=== PATIENT | male | born 1955 | race Caucasian/White ===

== ENCOUNTER 2018-08-08 08:38 | Day surgery (SDC) | payer BC, SELFPAY ==
[2018-08-08] VITALS (7 sets, daily range): BP systolic 136–158; BP diastolic 73–90; PULSE 90–99; RESP 11–18; TEMP 36.3–37.2; O2SAT 93–97
[2018-08-08] MEDS: Lactated Ringers 1,000 ML 30 ML IV ×3 (09:51→16:58)
--- NOTE | 2018-08-08 14:25 | W.PM.DSUDISC ---
Discharge Plan Disposition Patient Disposition: HOME Condition: Stable Discharge Details Reason For Visit: Bilateral Inguinal Hernia Attending Provider: David Shipley III Primary Care Provider: Brittany Hsieh V Home Meds and New Rx's Prescriptions: New oxycodone 5 mg capsule 5 mg PO Q12H PRN PRN (Reason: pain) Qty: 10 RF: 0 Continued tramadol 50 MG tablet 50 mg PO PRN RF: 0 methocarbamol [Robaxin-750] 750 MG tablet 1,500 mg PO HS RF: 0 trazodone 100 MG tablet 200 mg PO HS RF: 0 omeprazole 20 MG capsule,delayed release(DR/EC) 20 mg PO DAILY RF: 0 aspirin 81 MG tablet,chewable 81 mg PO DAILY RF: 0 omega-3 fatty acids-fish oil [Fish Oil] 1 EACH capsule 1 ea PO DAILY RF: 0 Lorazepam 1 MG tablet 1 mg PO PRN RF: 0 ibuprofen 800 mg tablet 200 mg PO BID RF: 0 Discharge Instructions Referrals: David Shipley III, DO [OSTEOPATHIC DOCTOR] - 08/14/18 10:00 am Activity:: Activity as Tolerated Remove Dressings/Wound Care:: 24 hours Shower/Bathe:: 24 hours Diet:: As Tolerated Discharge Orders Discharge Orders: Discharge Order (Routine); Ordered 08/08/18 Ordered By: David Shipley III
--- NOTE | 2018-08-08 14:37 | W.PM.OP ---
Date of service: 08/08/18 Time of Service: 14:37 Operative Note DATE OF PROCEDURE: 08/08/18 PRE-OP DIAGNOSIS: laproscopic bilateral indirect inguinal hernia repair POST-OP DIAGNOSIS: same PROCEDURE: laproscopic bilateral hernia repair with mesh SURGEON: David Shipley III ASSISTING SURGEON: Ceci Corona ANESTHESIA: GETA ESTIMATED BLOOD LOSS: 10 PATHOLOGY: none sent COMPLICATIONS: None Patient was transported to: PACU Patient's condition: stable Implants: preformed marlex laproscopic inguinal mesh with 2 tacs Indications: bilateral indirect inguinal hernias Findings: left had larger sac than the right, the left needed considerable more disection Procedure Description: pt had gen anesthesia with bilateral inguinal femoral blocks done at the ASIS abd preped and draped an ioban added time out preformed pt had a infra umbilical incision and down to fascia, two midline 5mm ports inserted under direct vision the left ant fascia was incised and the rectus seen the dissection was done manually and then the dissector devise inserted and the balloon inflated the right side was done first, all okeefe structures seen and the sac identified this was manually reduced and the lateral portion dissected out to the level of the ASIS for the tail of the mesh the left side was done in a similar fashion, this dissection was more involved and took considerable more time after both sides were successfully reduced the large preformed mesh was inserted the right sat well and one tac to the pubis was used to avoid migration the left was a little more challenging but after a similar tac to the pubis it sat well this was tested with removal of the co2 and both sides sat well and watched the peritoneium come up the ports were removed under direct vision the fascia was approximated with a figure of 8 vicryl the skin closed in a layered fashion debriefing was done spoken to after the case
[2018-08-08] MEDS: Ondansetron 4 MG/2 ML VIAL IVP (15:40)
[2018-08-08] MEDS: Normal Saline Flush 10 ML SYR IV ×2 (15:40→17:02)
[2018-08-08] MEDS: diphenhydrAMINE 50 MG/ML VIAL 12.5 MG IVP (16:59)
[2018-08-08] MEDS: Scopolamine 1 MG/3 DAYS PATCH TD (17:00)
[2018-08-08] MEDS: Dexamethasone 10 MG/ML VIAL IVP (17:04)
== END 2018-08-08 18:59 | disposition home or self-care (01) ==
PROVIDERS: PCP Family Medicine; Visit Provider Surgery
PROC: (CPT 49650; principal; 2018-08-08 10:30)
DX: K40.20 Bilateral inguinal hernia, without obstruction or gangrene, not specified as recurrent (principal); K21.9 Gastro-esophageal reflux disease without esophagitis
CPT/HCPCS: 49505; C1781; J0690; J1100; J1200; J1885; J2250; J2405; J3010

== ENCOUNTER 2018-12-05 07:58 | Outpatient (CLI) | payer BC, SELFPAY ==
--- NOTE | 2018-12-05 08:38 | DI.US_ITS ---
SYMPTOM/DIAGNOSIS: SCROTAL SWELLING AND PAIN, N50.89, N50.82, S/P INGUINAL HERNIA REPAIR SCROTAL ULTRASOUND: Routine examination was performed. The right testicle measures 4.4 by 2.6 by 3.3 cm. No evidence of a testicular mass is seen. There is normal blood flow. No evidence of torsion. There are several small epididymal head cysts present, the largest measures .8 cm. There is a small hydrocele present. There is internal debris present. The left testicle measures 3.3 by 2.2 by 3.0 cm. It is homogeneous. No evidence of an intratesticular mass is seen. There is normal blood flow. No evidence of torsion. The left epididymis has several small epididymal head cysts. There is a small hydrocele present. There is a left varicocele. No evidence of an inguinal hernia is seen sonographically. IMPRESSION: 1. No evidence of an inguinal hernia. 2. Small bilateral hydroceles. 3. Left varicocele.
== END 2018-12-05 08:18 ==
PROVIDERS: PCP Family Medicine; Visit Provider Physical Therapy Assistant
DX: N50.82 Scrotal pain (principal); N50.89 Other specified disorders of the male genital organs; N43.3 Hydrocele, unspecified; I86.1 Scrotal varices
CPT/HCPCS: 76870

== ENCOUNTER 2019-01-30 13:31 | Outpatient (REF) | payer OTHER, SELFPAY ==
[2019-01-30 19:48] LABS: Anion Gap 8.8 mmol/L (3-11); BUN 18 mg/dL (7-18); CO2 25.2 mmol/L (21.0-32.0); CREATININE 0.92 mg/dL (0.70-1.30); Calcium 9.3 mg/dL (8.5-10.1); Chloride 106 mmol/L (98-107); Glucose 85 mg/dL (70-100); Potassium 4.6 mmol/L (3.5-5.1); Sodium 140 mmol/L (136-145); Uric Acid 6.1 mg/dL (3.5-7.2)
[2019-02-01 10:05] LABS: PSA, Screening 0.6 ng/ml (0-4.5)
== END 2019-01-30 13:51 ==
LOC: NCHCN 13:31
PROVIDERS: PCP Family Medicine; Visit Provider Family Medicine
DX: Z00.00 Encounter for general adult medical examination without abnormal findings (principal); Z12.5 Encounter for screening for malignant neoplasm of prostate; M79.676 Pain in unspecified toe(s)
CPT/HCPCS: 80048; 84153; 84550

== ENCOUNTER 2020-07-07 21:33 | Outpatient (REF) | payer OTHER, SELFPAY ==
[2020-07-11 19:17] LABS: COVID-19 RT-PCR Result NEGATIVE (Negative)
== END 2020-07-07 21:53 ==
LOC: NCHCN 21:33
PROVIDERS: PCP Family Medicine; Visit Provider Family Medicine
DX: Z20.828 Contact with and (suspected) exposure to other viral communicable diseases (principal)
CPT/HCPCS: U0003

== ENCOUNTER 2021-02-10 16:03 | Outpatient (REF) | payer OTHER, SELFPAY ==
[2021-02-10 19:45] LABS: Anion Gap 11.4 mmol/L (3-11); BUN 17 mg/dL (7-18); CO2 23.6 mmol/L (21.0-32.0); CREATININE 1.1 mg/dL (0.70-1.30); Calcium 9.6 mg/dL (8.5-10.1); Chloride 105 mmol/L (98-107); Glucose 85 mg/dL (74-106); Potassium 4.3 mmol/L (3.5-5.1); Sodium 140 mmol/L (136-145)
[2021-02-11 16:44] LABS: PSA, Screening 0.8 ng/mL (0.0-4.5)
[2021-02-11 20:35] LABS: Calculated LDL 142 mg/dL (<100); Cholesterol 213 mg/dL (<200); HDL Cholesterol 36 mg/dL (40-60); Triglyceride 179 mg/dL (<150)
[2021-02-12 10:23] LABS: Lyme Ab w Rflx to Lyme Confirm Negative (Negative)
[2021-02-12 10:27] LABS: Hepatitis C Ab w Rflx HCV PCR Negative (Negative)
[2021-02-13 09:39] LABS: Anaplasma phagocytophilum Negative (Negative); B. miyamotoi PCR Negative (Negative); Babesia divergens/MO-1 Negative (Negative); Babesia duncani Negative (Negative); Babesia microti Negative (Negative); Ehrlichia chaffeensis Negative (Negative); Ehrlichia ewingii/canis Negative (Negative); Ehrlichia muris eauclairensis Negative (Negative)
== END 2021-02-10 16:04 | disposition home or self-care (01) ==
LOC: NCHCN 16:03
PROVIDERS: PCP Family Medicine; Visit Provider Family Medicine
DX: Z00.00 Encounter for general adult medical examination without abnormal findings (principal)
CPT/HCPCS: 80048; 80061; 84153; 86803; 87798; 86618

== ENCOUNTER 2021-04-03 04:11 | Outpatient (CLI) | payer OTHER, SELFPAY ==
--- NOTE | 2021-04-03 | DI.MRI_ITS ---
Exam(s) MR CERVICAL SPINE WO EXAM: MR CERVICAL SPINE WO CLINICAL HISTORY: CERVICALAGIA,M54.2. TECHNIQUE: Multiplanar multisequence MRI was performed. COMPARISON: MR MRI - CERVICAL SPINE WO CONT from 01/14/2015 FINDINGS: MR examination cervical spine was performed according to the usual protocol. Patient was unable to remain motionless and there is significant motion artifact on all pulse sequences. Images obtained through the posterior fossa are unremarkable. Spinal cord shows normal signal and no rmal diameter throughout. No significant bony signal abnormality seen. However there are endplate and facet hypertrophic davis es throughout the cervical region. There is prominence of the disc osteophyte complex at C3-4 C4-5 C 5-6 and C6-7. There is probable mild neural foraminal stenosis at C3-4, C4-5, C5-6, and C6-7. Neura l foramina are difficult to evaluate. No focal disc herniation seen. No central canal spinal stenosis. IMPRESSION: Limited study secondary to motion artifact. No focal lesion identified. Probable multi level neural foraminal stenosis as described above. DATA REPOSITORY:
--- NOTE | 2021-04-03 | DI.MRI_ITS ---
Exam(s) MR LUMBAR SPINE WO EXAM: MR LUMBAR SPINE WO CLINICAL HISTORY: ACUTE LOW BACK PAIN, M54.5. TECHNIQUE: Multiplanar multisequence MRI was performed. COMPARISON: No exams were available for comparison FINDINGS: MR examination lumbosacral spine was performed according to the usual protocol. No focal bony signal abnormality seen. Central spinal canal appears intact throughout as do the neural foramina. The conus medullaris appears intact. No significant findings involving the intervertebral discs from T11-12 through L2-3. There is a slight disc bulge at L3-4 without focal disc herniation. At L4-5, there is a small central disc herniation without direct evidence of neural impingement. At L5-S1 there is a small central disc herniation without evidence of neural impingement. IMPRESSION: Small central disc herniations at L4-5 and L5-S1. No other significant findings. No definite neural impingement. DATA REPOSITORY:
== END 2021-04-03 04:31 ==
PROVIDERS: PCP Family Medicine; Visit Provider Family Medicine
DX: M54.2 Cervicalgia (principal); M54.5 Low back pain; M51.26 Other intervertebral disc displacement, lumbar region; M51.27 Other intervertebral disc displacement, lumbosacral region
CPT/HCPCS: 72141; 72148

== ENCOUNTER 2021-09-02 14:56 | Outpatient (REF) | payer OTHER, SELFPAY ==
[2021-09-02 13:08] LABS: Clarity Cloudy; Nucleated Cells 962 uL (0)
[2021-09-02 13:26] LABS: Crystals (BF) No Crystals seen
[2021-09-02 13:46] LABS: Mononuclear Cells 84 %; Polynuclear Cells 16 %
== END 2021-09-02 14:57 | disposition home or self-care (01) ==
LOC: LBN 14:56
PROVIDERS: PCP Family Medicine; Visit Provider Physician Assistant Medical
DX: M25.462 Effusion, left knee (principal)
CPT/HCPCS: 87070; 87205; 89051; 89060

== ENCOUNTER 2021-12-25 11:33 | Outpatient (CLI) | payer OTHER, SELFPAY ==
--- NOTE | 2021-12-25 10:45 | DI.RAD_ITS ---
Exam(s) XR KNEE LT 3V AP,LAT,ADELSO EXAM: XR KNEE LT 3V AP,LAT,ADELSO CLINICAL HISTORY: left knee pain. TECHNIQUE: 2D digital imaging was performed. Three views. COMPARISON: CR RIGHT KNEE 3 VIEWS from 02/25/2014 CR XR KNEE RT 3V AP,LAT,ADELSO from 12/25/2021 FINDINGS: BONES: No acute fracture is present. No bony destructive lesion is seen. JOINTS: Joint spaces are well maintained. The knee is normally aligned. No joint effusion is seen. SOFT TISSUE: Swelling anterior to the patellar tendon. No foreign body. IMPRESSION: Anterior soft tissue swelling. DATA REPOSITORY: RADIATION DOSE DELIVERED:
--- NOTE | 2021-12-25 10:45 | DI.RAD_ITS ---
Exam(s) XR KNEE RT 3V AP,LAT,ADELSO EXAM: XR KNEE RT 3V AP,LAT,ADELSO CLINICAL HISTORY: right knee pain. TECHNIQUE: 2D digital imaging was performed. Three views. COMPARISON: No exams were available for comparison FINDINGS: BONES: No acute fracture is present. No bony destructive lesion is seen. JOINTS: Minimal narrowing medial femoral tibial joint space. Minimal periarticular spurring. The kn ee is normally aligned. No joint effusion is seen. SOFT TISSUE: Normal. IMPRESSION: Minimal degenerative changes. DATA REPOSITORY: RADIATION DOSE DELIVERED:
== END 2021-12-25 11:34 | disposition home or self-care (01) ==
LOC: DIORS 11:33
PROVIDERS: PCP Family Medicine; Referring Provider Family Medicine; Visit Provider Physician Assistant
DX: M25.561 Pain in right knee (principal); M25.562 Pain in left knee; M17.11 Unilateral primary osteoarthritis, right knee; M79.89 Other specified soft tissue disorders
CPT/HCPCS: 73562

== ENCOUNTER 2022-05-10 10:14 | Outpatient (CLI) | payer OTHER, SELFPAY ==
--- NOTE | 2022-05-10 10:00 | DI.RAD_ITS ---
Exam(s) XR WRIST RT COMPL NAVICULAR EXAM: XR WRIST RT COMPL NAVICULAR CLINICAL HISTORY: eval R wrist pain. TECHNIQUE: 2D digital imaging was performed. Three views. COMPARISON: No exams were available for comparison FINDINGS: BONES: No acute fracture is present. No bony destructive lesion is seen. There is a degenerative subc hondral cyst in the distal radius as well as distal ulna. JOINTS: The carpal bones are normally aligned. There is severe narrowing of the radial lunate joint s pace. There is mild periarticular spurring. There is mild spurring at the 1st carpal metacarpal vern nt. There is no widening of the scapholunate distance. SOFT TISSUE: Normal. IMPRESSION: Degenerative changes greatest of the radiolunate joint. DATA REPOSITORY: RADIATION DOSE DELIVERED:
== END 2022-05-10 10:15 | disposition home or self-care (01) ==
LOC: DIORS 10:14
PROVIDERS: PCP Family Medicine; Referring Provider Family Medicine; Visit Provider Student in an Organized Health Care Education/Training Program
DX: M19.031 Primary osteoarthritis, right wrist (principal)
CPT/HCPCS: 73110

== ENCOUNTER 2022-08-19 14:09 | Outpatient (REF) | payer MEDICARE, SELFPAY ==
[2022-08-19 15:41] LABS: BUN 15 mg/dL (7-18); Calcium 9.7 mg/dL (8.5-10.1); Chloride 104 mmol/L (98-107); Estimated GFR 83.52 (mL/min/1.73m2); Glucose 91 mg/dL (74-106); Potassium 4.1 mmol/L (3.5-5.1); Sodium 138 mmol/L (136-145)
[2022-08-20 11:01] LABS: Lyme Ab w Rflx to Lyme Confirm Negative (Negative)
[2022-08-22 14:36] LABS: Anaplasma phagocytophilum Negative (Negative); B. miyamotoi PCR Negative (Negative); Babesia divergens/MO-1 Negative (Negative); Babesia duncani Negative (Negative); Babesia microti Negative (Negative); Ehrlichia chaffeensis Negative (Negative); Ehrlichia ewingii/canis Negative (Negative); Ehrlichia muris eauclairensis Negative (Negative)
== END 2022-08-19 14:10 | disposition home or self-care (01) ==
LOC: NCHCN 14:09
PROVIDERS: PCP Family Medicine; Visit Provider Family Medicine
DX: I10 Essential (primary) hypertension (principal); R20.2 Paresthesia of skin
CPT/HCPCS: 80048; 87798; 86618

== ENCOUNTER 2022-10-22 01:41 | Outpatient (CLI) | payer MEDICARE, SELFPAY ==
--- NOTE | 2022-10-22 07:45 | DI.MRI_ITS ---
Exam(s) MR LOWER JOINT RT WO EXAM: MR LOWER JOINT RT WO CLINICAL HISTORY: PAIN,internal derangement rt knee,m23.91,primary oa,m17.11. TECHNIQUE: Multiplanar multisequence MRI was performed. COMPARISON: CR XR KNEE RT 3V AP,LAT,ADELSO from 12/25/2021 FINDINGS: BONES: Mild marrow edema seen in the medial tibial plateau. JOINTS: There is thinning of the articular cartilage overlying the medial patellar facet with subchon dral edema and small subchondral cysts. They are to go cartilage is otherwise well maintained. No e ffusion is present. TENDONS: Extensor mechanism: Unremarkable. Medial retinaculum: Unremarkable. Lateral retinaculum: Unremarkable. Popliteus: Unremarkable. MUSCLES: Unremarkable. MENISCI: There is no evidence of a meniscal tear. There is degenerative signal seen in the lateral m eniscus. SOFT TISSUES: Unremarkable. LIGAMENTS: Anterior Cruciate: Unremarkable. Posterior Cruciate: Unremarkable. Medial Collateral:Unremarkable. Lateral Collateral: Unremarkable. OTHER: IMPRESSION: 1. There is no evidence of a meniscal or ligament tear. 2. Articular cartilage thinning and subchondral changes in the medial patellar facet. This may repre sent chondromalacia versus osteoarthritis. 3. Nonspecific marrow edema in the medial tibial plateau. No evidence of a fracture. DATA REPOSITORY:
== END 2022-10-22 02:01 ==
LOC: DI 01:41
PROVIDERS: PCP Family Medicine; Visit Provider Student in an Organized Health Care Education/Training Program
DX: M25.561 Pain in right knee (principal); M17.11 Unilateral primary osteoarthritis, right knee; M23.8X1 Other internal derangements of right knee; M25.861 Other specified joint disorders, right knee
CPT/HCPCS: 73721

== ENCOUNTER → 2022-11-18 10:49 | Outpatient (BNVA) | payer MEDICARE, SELFPAY | PROVIDERS: PCP Family Medicine; Referring Provider Family Medicine | DX: M17.11 Unilateral primary osteoarthritis, right knee (principal); M17.12 Unilateral primary osteoarthritis, left knee | CPT/HCPCS: 20610; J1040 ==

== ENCOUNTER 2023-04-20 15:52 | Outpatient (CLI) | payer MEDICARE, SELFPAY | END 2023-04-20 15:53 | disposition home or self-care (01) | LOC: DIORS 15:52 | PROVIDERS: PCP Family Medicine; Referring Provider Family Medicine | DX: M17.11 Unilateral primary osteoarthritis, right knee (principal); M17.12 Unilateral primary osteoarthritis, left knee | CPT/HCPCS: 20610; J1040 ==

== ENCOUNTER → 2023-05-25 02:37 | Outpatient (CLI) | payer MEDICARE, SELFPAY ==
--- NOTE | 2023-05-25 | DI.US_ITS ---
Exam(s) US AAA SCREENING EXAM: US AAA SCREENING CLINICAL HISTORY: HYPERTENSION,I10,H/O TOBACCO ABUSE, Z87.891,SCREENING FOR AAA COMPARISON: MR MR LUMBAR SPINE WO from 04/03/2021 FINDINGS: Abdominal Aorta: Proximal: 2.7 cm Mid: 2.5 cm Distal: 2.3 cm Iliacs: Right: 1.6 cm Left: 1.5 cm IMPRESSION: No evidence of abdominal aortic aneurysm. DATA REPOSITORY:
== END ==
PROVIDERS: PCP Family Medicine; Visit Provider Family Medicine
DX: Z13.6 Encounter for screening for cardiovascular disorders (principal)
CPT/HCPCS: 76706

== ENCOUNTER 2023-06-03 14:38 | Outpatient (REF) | payer MEDICARE, SELFPAY ==
[2023-06-03 16:11] LABS: ALT 37 U/L (16-63); AST 16 U/L (15-37); Albumin 3.9 g/dL (3.4-5.0); Alkaline Phosphatase 87 U/L (46-116); Anion Gap 8.2 mmol/L (3-11); BUN 15 mg/dL (7-18); Bilirubin, Total 0.3 mg/dL (0.2-1.0); CO2 28.8 mmol/L (21.0-32.0); Calcium 9.8 mg/dL (8.5-10.1); Calculated LDL 154 mg/dL (<100); Chloride 102 mmol/L (98-107); Cholesterol 219 mg/dL (<200); Estimated GFR 83.52 (mL/min/1.73m2); Glucose 108 mg/dL (74-106); HDL Cholesterol 43 mg/dL (40-60); Potassium 4.7 mmol/L (3.5-5.1); Sodium 139 mmol/L (136-145); Total Protein 7.5 g/dL (6.4-8.2); Triglyceride 114 mg/dL (<150)
== END 2023-06-03 14:39 | disposition home or self-care (01) ==
LOC: NCHCN 14:38
PROVIDERS: PCP Family Medicine; Visit Provider Family Medicine
DX: I10 Essential (primary) hypertension (principal); Z00.00 Encounter for general adult medical examination without abnormal findings
CPT/HCPCS: 80053; 80061

== ENCOUNTER 2023-07-13 12:14 | Emergency (ER) | payer MEDICARE, SELFPAY ==
[2023-07-13 12:19] VITALS: BP 175/96; PULSE 85; RESP 16; TEMP 36.6; O2SAT 98
[2023-07-13 12:27] VITALS: BP 175/96; PULSE 85; RESP 16; TEMP 36.6; O2SAT 98
[2023-07-13 12:47] LABS: Bilirubin Negative (Negative); Blood Negative (Negative); Clarity Clear (Clear); Glucose Negative (Negative); Ketones Negative (Negative); Leukocyte Esterase Negative (Negative); Nitrite Negative (Negative); Specific Gravity <= 1.005 (1.005-1.025); Urobilinogen 0.2 mg/dL (Up to 0.2); pH 5.5 (5-8)
--- NOTE | 2023-07-13 12:49 | ED.GENADUL_ITS ---
Discharge Plan Disposition Patient Disposition: Home Condition: Stable Discharge Details Clinical Impression: Bilateral flank pain Primary Care Provider: Brittany Hsieh V ED Provider: Kate Huntley Home Meds and New Rx's Prescriptions: No Action losartan 50 mg tablet 50 mg PO DAILY tramadol 50 MG tablet 50 mg PO PRN trazodone 100 MG tablet 200 mg PO HS aspirin 81 MG tablet,chewable 81 mg PO DAILY Fish Oil 1 EACH capsule 1 ea PO DAILY Lorazepam 1 MG tablet 1 mg PO PRN ibuprofen 800 mg tablet 200 mg PO BID omeprazole 20 mg capsule,delayed release(DR/EC) 20 mg PO DAILY sildenafil (pulm.hypertension) 20 mg tablet 20 mg PO DAILY PRN simvastatin 20 mg tablet 20 mg PO ONCE Patient Comments: TAKE 1 TABLET BY MOUTH DAILY Discharge Instructions Instructions: Flank Pain (ED) Referrals: Brittany Hsieh MD [Primary Care Provider] - 1 week Discharge Data Discharge Physician: Kate Huntley Medical Decision Making 67-year-old male presents for evaluation of bilateral upper flank pain. No trauma or infectious symptoms. Patient concerned that this is secondary to statin. He discontinued it last night. UA is negative. CT abdomen pelvis is unremarkable. Patient is reassured by findings. He is concerned about onset of symptoms and causation. I have explained that I am unable to further differentiate the cause of pain today. This could be muscular in nature. It could be secondary to the statin. His plan is to not take the statin anymore. I think that is reasonable at this time. He has been appointment to see a edge trimmer mechanic to see if there are other options to treat his cholesterol. I have recommended close follow-up with primary care. He understands indications to return. HPI General Date/Time Provider Initiated Documentation: 07/13/23 12:26 . HPI Narrative: 67-year-old male presents for evaluation of bilateral upper flank pain. Patient states that he has pain in his bilateral upper back for the last several days. It is worse with standing. Denies any fevers or chills. No cough or cold. No shortness of breath. Pain is not worse with taking a deep breath. He was recently started on statin for elevated cholesterol on routine blood work. He states that there are no other new medications. Denies any abdominal pain. The flank pain does not radiate to his testicles. Denies any increased urinary frequency, dysuria, gross hematuria. He has been trying to drink extra fluids at home. No difficulty moving his bowels. No history of blood clots. Denies any calf pain or swelling. Related Data Home Medications Medication Instructions Recorded Confirmed Lorazepam 1 mg PO PRN 02/14/18 07/13/23 aspirin 81 mg chewable tablet 81 mg PO DAILY 02/14/18 07/13/23 omega-3 fatty acids-fish oil 340 1 ea PO DAILY 02/14/18 07/13/23 mg-1,000 mg capsule (Fish Oil) tramadol 50 mg tablet 50 mg PO PRN 02/14/18 07/13/23 trazodone 100 mg tablet 200 mg PO HS 02/14/18 07/13/23 ibuprofen 800 mg tablet 200 mg PO BID 07/10/18 07/13/23 omeprazole 20 mg capsule,delayed 20 mg PO DAILY 10/27/21 07/13/23 release sildenafil (pulm.hypertension) 20 20 mg PO DAILY PRN 10/27/21 07/13/23 mg tablet losartan 50 mg tablet 50 mg PO DAILY 11/18/22 07/13/23 simvastatin 20 mg tablet 20 mg PO ONCE 07/13/23 07/13/23 Allergies Allergy/AdvReac Type Severity Reaction Status Date / Time bupropion AdvReac Mild Pt didnt Verified 07/13/23 12:28 like what it did. clonidine AdvReac Mild Pt didnt Verified 07/13/23 12:28 like how he felt on it. propranolol AdvReac Mild pt didnt Verified 07/13/23 12:28 like how he felt on it venlafaxine HCl AdvReac Mild per PCP Verified 07/13/23 12:28 [From Effexor] referral General Stated Complaint: Urinary DUSTIN: 4 Review of Systems Narrative: Remainder of review of systems otherwise negative except for as noted in the HPI x 10. PFSH All Active Problems Bilateral flank pain (Acute) Arthritis of wrist, right, degenerative (Acute) Osteoarthritis of left knee (Acute) Steroid Injection: 04/20/2023; 11/18/2022; 05/10/2022 Degenerative joint disease of right knee (Acute) Steroid Injection: 04/20/2023; 11/18/2022; 05/10/2022 Prepatellar bursitis of both knees (Acute) History of aspiration and Depo-Medrol injection completed by urgent care of left knee Depression (Chronic) Generalized anxiety disorder (Acute) Hypertension (Chronic) Varicocele present on ultrasound of scrotum (Acute) Spermatocele of epididymis, multiple (Acute) Testicular/scrotal pain (Acute) Follow up (Acute) Bilateral inguinal hernia without obstruction or gangrene (Acute) Medical History History of alcohol abuse History of tobacco use GERD (gastroesophageal reflux disease) Left groin pain Chronic back pain Surgical History History of bilateral inguinal hernia repair (08/08/18) Dr David Shipley, [facility] History of tonsillectomy and adenoidectomy Social History Smoking/Tobacco Use Status: Former Tobacco Use Smoking risk assessment performed?: Yes Alcohol Intake: never Drug use: Occasionally Current gender identity: male Do you feel safe at home: Yes Do you feel safe in your relationship?: Yes Exam Narrative Exam Narrative: General: non-toxic, no respiratory distress, comfortable HEENT: normocephalic, atraumatic, lids and lashes normal, PERRL, EOMI, anicteric sclera, no conjunctival injection, moist oral mucosa Card: regular rate and rhythm, S1S2, no murmurs, rubs, or gallops Lungs: good air entry, clear to auscultation bilaterally. no wheezes, rales, rhonchi, or retractions Abd: soft, non-tender, non-distended, normal bowel sounds, no rebound or guarding, no peritoneal signs, no CVAT Musculoskeletal: full range of motion of arms and legs, no tenderness to palpation. no clubbing, cyanosis, or edema Neurologic: appropriate for age, strength normal Psych: alert and oriented Skin: no petechiae, no lesions, warm and dry Course Vital Signs Vital signs: Vital Signs Temperature 36.6 C 07/13/23 12:19 Pulse 85 07/13/23 12:19 Respiratory Rate 16 07/13/23 12:19 Blood Pressure 175/96 H 07/13/23 12:19 Pulse Oximetry 98 07/13/23 12:19 Temperature 36.6 C 07/13/23 12:27 Temperature Source Skin 07/13/23 12:27 Pulse 85 07/13/23 12:27 Respiratory Rate 16 07/13/23 12:27 Blood Pressure 175/96 H 07/13/23 12:27 Blood Pressure Position Sitting 07/13/23 12:27 Pulse Oximetry 98 07/13/23 12:27 Oxygen Delivery Method Room Air 07/13/23 12:27 Oxygen Flow Rate 0 07/13/23 12:27 Pain Level 8 07/13/23 12:27 Lab/Test Results Lab/Test Results: Laboratory Tests Range/Units 07/13/23 12:36 Urine Color (Yellow) Yellow Urine Clarity (Clear) Clear Urine pH (5-8) 5.5 Ur Specific [place] (1.005-1.025) <= 1.005 Urine Protein (Negative) mg/dL Negative Urine Ketones (Negative) mg/dL Negative Urine Blood (Negative) Negative Urine Nitrite (Negative) Negative Urine Bilirubin (Negative) Negative Urine Urobilinogen (Up to 0.2) mg/dL 0.2 Ur Leukocyte Esterase (Negative) Negative Urine Glucose (Negative) mg/dL Negative
[2023-07-13 12:58] LABS: Abs Immature Grans 0.02 10^3/uL (0.0-0.06); Absolute Basophil Count 0.07 10^3/uL (0.0-0.2); Absolute Eosinophil Count 0.23 10^3/uL (0.0-0.7); Absolute Lymphocyte Count 1.79 10^3/uL (1.2-3.4); Absolute Monocyte Count 0.59 10^3/uL (0.1-0.8); Absolute Neutrophil Count 4.39 10^3/uL (1.2-6.7); Eosinophils % 3.2; HCT 44.4 % (40.0-50.0); HGB 15.1 g/dL (13.5-17.5); Immature Grans % 0.3; Lymphocytes % 25.2; MCH 30.6 pg (27.0-33.0); MCV 90 fL (80-95); MPV 9.7 fL (8.0-11.0); Monocytes % 8.3; Platelet Count 223 10^3/uL (130-400); RBC 4.94 10^6/uL (4.36-5.78); RDW 12.1 % (11.8-14.1); RDW-SD 39.6 fL; WBC 7.09 10^3/uL (4.4-10.8)
[2023-07-13 13:11] LABS: ALT 35 U/L (16-63); AST 17 U/L (15-37); Alkaline Phosphatase 91 U/L (46-116); Anion Gap 7.6 mmol/L (3-11); BUN 14 mg/dL (7-18); Bilirubin, Total 0.4 mg/dL (0.2-1.0); CO2 28.4 mmol/L (21.0-32.0); CREATININE 1.1 mg/dL (0.70-1.30); Calcium 9.5 mg/dL (8.5-10.1); Chloride 102 mmol/L (98-107); Creatine Kinase 122 U/L (39-308); Glucose 99 mg/dL (74-106); Potassium 3.7 mmol/L (3.5-5.1); Sodium 138 mmol/L (136-145); Total Protein 7.9 g/dL (6.4-8.2)
--- NOTE | 2023-07-13 13:16 | DI.CT_ITS ---
Exam(s) CT ABDOMEN PELVIS W EXAM: CT ABDOMEN PELVIS W CLINICAL HISTORY: bilateral flank pain. TECHNIQUE: Imaging Protocol: Axial computed tomography images with coronal and sagittal reformatted images were created and reviewed CONTRAST MATERIAL: Intravenous: Omnipaque 350 Contrast volume:100 ml Oral: yes / no COMPARISON: No exams were available for comparison FINDINGS: ABDOMEN and PELVIS: Lung Bases: No acute findings. Mitral annulus heavily calcified Liver: Normal density. No measurable mass. Gallbladder and biliary tract: No radiodense calculus or dilation. Pancreas: Normal density. No abnormal calcifications or inflammatory process. No evidence of mass. Spleen: Normal. Kidneys: Normal size, contour and axis. No radiodense stones. No obstructive uropathy. No suspicious masses seen. Adrenal glands: No masses seen. Vasculature: Abdominal aorta non-dilated. Mild atherosclerotic changes. Soft tissues: Small fatty containing umbilical hernia. Bladder: No gross wall thickening. No calculi.No focal mass. Bowel: No obstruction. No bowel wall thickening. Appendix normal.Extensive diverticulosis. No evid ence of diverticulitis. Normal quantity of stool. Peritoneal cavity: No ascites. No focal collection or mesenteric inflammatory response. Bones: Unremarkable for age. Reproductive organs: Prostate slightly enlarged.. Lymph nodes: Unremarkable. IMPRESSION:: No acute abnormality in the abdomen and pelvis. RADIATION DOSE DELIVERED: Total DLP DATA REPOSITORY: All CT scans at this facility are submitted to the National Radiology Data Registry (NRDR) Dose Index Registry (DIR) with the [employer] (ACR). RADIATION OPTIMIZATION: All CT scans at this facility use at least one of these dose optimization te chniques: automated exposure control; mA and/or kV adjustment per patient size (includes targeted exa ms where dose is matched to clinical indication); or iterative reconstruction.
[2023-07-13] MEDS: Normal Saline - Diluent 50 ML VIAL IJ (13:35)
[2023-07-13] MEDS: Omnipaque 350 MG/ML 100 ML BTL IJ (13:35)
[2023-07-13 14:16] VITALS: BP 166/91; PULSE 70; RESP 16; TEMP 36.7; O2SAT 96
== END 2023-07-13 14:18 | disposition home or self-care (01) ==
PROVIDERS: Emergency Provider Emergency Medicine Emergency Medical Services; PCP Family Medicine
DX: R10.9 Unspecified abdominal pain (principal); Z79.82 Long term (current) use of aspirin; Z79.899 Other long term (current) drug therapy; I10 Essential (primary) hypertension
CPT/HCPCS: 36415; 80053; 82550; 99285; 74177; 81003; 85025; 99284; J3490

== ENCOUNTER → 2023-09-29 10:38 | Outpatient (BNVA) | payer MEDICARE, SELFPAY | PROVIDERS: PCP Family Medicine; Referring Provider Family Medicine | DX: M17.11 Unilateral primary osteoarthritis, right knee (principal); M17.12 Unilateral primary osteoarthritis, left knee | CPT/HCPCS: 20610; J1040 ==

== ENCOUNTER 2024-03-15 02:33 | Outpatient (CLI) | payer MEDICARE, SELFPAY ==
--- NOTE | 2024-03-15 | DI.US_ITS ---
Exam(s) US ABDOMEN EXAM: US ABDOMEN CLINICAL HISTORY: R10.9 unspecified abd pain TECHNIQUE: Ultrasound abdomen performed using standard protocol. COMPARISON: US ABDOMEN ULTRASOUND (P) from 01/07/2012 US US AAA SCREENING from 05/25/[address] ABDOMEN PELVIS W from 07/13/2023 FINDINGS: ABDOMINAL AORTA AND IVC: Visualized portions normal caliber. PANCREAS: Normal where visualized. LIVER: The liver measures 16.1 cm long. Hepatopetal flow in the Portal Vein. GALLBLADDER:No evidence of cholelithiasis. No evidence of wall thickening. No pericholecystic fluid i dentified. BILIARY SYSTEM: Common bile duct measures < 7 mm. No intrahepatic biliary ductal dilation. VALLECILLO'S SIGN: Negative. KIDNEYS: Kidneys are symmetric in size. No evidence of renal calculi. No evidence of hydronephrosis. No renal mass or cyst identified. SPLEEN: Not enlarged. ASCITES: None seen. IMPRESSION: Normal sonographic appearance of the upper abdomen. DATA REPOSITORY:
--- OUTSIDE RECORDS SUMMARY | 2024-03-15 02:37 | XMS_ITS | Encounter Summary ---
Author Organization [facility] Address [address] [place] [address] Care Team Providers Care Aoc Plans Intelligence Officer Name Role Phone Unavailable Primary Care Provider Unavailabl e Encounter Details Date Type Department Care Team (Late st Contact Info) Description 05/27/1999 13:08 EDT Hospital Encounter [facility] [address] [place] [address] [place], Jaren Paulson MD [address] [place] [address] [place] [address] Social History Tobacco Use Types Packs/Day Years Used Date Smoking Tobacco: Never Assessed Sex and Gender Information Value Date Recorded Sex Assigned at Not on file Gender Identity Not on file Sexual Orientation Not on file documented as of this encounter Plan of Treatment Not on file documented as of this encounter Visit Diagnoses Not on filedocumented in this encounter
--- OUTSIDE RECORDS SUMMARY | 2024-03-15 02:37 | XMS_ITS | Encounter Summary ---
Author Organization [facility] Address [address] [place] [address] Care Team Providers Care Cluster Bore Operator Name Role Phone Unavailable Primary Care Provider Unavailabl e Encounter Details Date Type Department Care Team (Late st Contact Info) Description 10/30/2007 Results Only [facility] - [facility] [address] [place] [address] Emergency, MD Jaimee Social History Tobacco Use Types Packs/Day Years Used Date Smoking Tobacco: Never Assessed Sex and Gender Information Value Date Recorded Sex Assigned at Not on file Gender Identity Not on file Sexual Orientation Not on file documented as of this encounter Plan of Treatment Not on file documented as of this encounter Procedures Procedure Name Priority Date/Time Associated Diagnosis Comments HOLD BLUE TOP Routine 10/30/2007 0:10 EDT TROPONIN I Routine 10/30/2007 0:05 EDT COMPLETE BLOOD COUNT AND DIFFERENTIAL Routine 10/30/2007 0:05 EDT BUN Routine 10/30/2007 0:05 EDT GLUCOSE, SERUM Routine 10/30/2007 0:05 EDT CREATININE Routine 10/30/2007 0:05 EDT ETHANOL, BLOOD Routine 10/30/2007 0:05 EDT ELECTROLYTES Routine 10/30/2007 0:05 EDT documented in this encounter Results * HOLD BLUE TOP (10/30/2007 0:10 EDT) Hold Blue Top Sample for coagulation will be discarded after 4 hours [facility] 10/30/2007 0:10 EDT 10/30/2007 0:17 EDT Default Emergency MD LAB INFO SERVICE AN D SUPPORT & PHONE RESULT Performing Organization Address [facility] de Phone Number [facility] [address] [place] [address] * TROPONIN I (10/30/2007 0:05 EDT) Pathologist [facility] Troponin I pre 2011 <0.05 ng/ml [facility] Comment: Reference Range: Normal: ??Less than 0.05 Indeterminate: ??0.05-0.80 Positive: ??Greater than 0.80 10/30/2007 0:05 EDT 10/30/2007 0:16 EDT Default Emergency MD CHEMISTRY & BLOOD G ORDERABLES Performing Organization Address [facility] de Phone Number [facility] [address] [place] [address] * (ABNORMAL) GLUCOSE, SERUM (10/30/2007 0:05 EDT) Pathologist [facility] Glucose, Serum 101(H) 70 - 100 mg/dl [facility] 10/30/2007 0:05 EDT 10/30/2007 0:16 EDT Default Emergency MD CHEMISTRY & BLOOD G ORDERABLES Performing Organization Address [facility] de Phone Number [facility] [address] [place] [address] * ELECTROLYTES (10/30/2007 0:05 EDT) Sodium 140 136 - 145 mEq/L [facility] Potassium 4.0 3.5 - 5.0 mEq/L [facility] Chloride 102 96 - 110 mEq/L [facility] CO2 26 24 - 32 mEq/L [facility] 10/30/2007 0:05 EDT 10/30/2007 0:16 EDT Default Emergency MD CHEMISTRY & BLOOD G ORDERABLES Performing Organization Address [facility] Co de Phone Number [facility] [address] [place] [address] * (ABNORMAL) ETHANOL, BLOOD (10/30/2007 0:05 EDT) Ethanol 205(H) <10 mg/dl [facility] 10/30/2007 0:05 EDT 10/30/2007 0:16 EDT Default Emergency MD CHEMISTRY & BLOOD G ORDERABLES Performing Organization Address [facility] de Phone Number [facility] [address] [place] [address] * (ABNORMAL) CREATININE (10/30/2007 0:05 EDT) Creatinine 0.60(L) 0.7 - 1.5 mg/dl [facility] GFR, Calculated >60 ml/min/1.7 3m2 [facility] 10/30/2007 0:05 EDT 10/30/2007 0:16 EDT Default Emergency MD CHEMISTRY & BLOOD G ORDERABLES Performing Organization Address [facility] de Phone Number [facility] [address] [place] [address] * (ABNORMAL) HEMAGRAM AND DIFFERENTIAL (10/30/2007 0:05 EDT) WBC 5.13 4.0 - 10.4 K/cmm [facility] RBC 4.45 4.36 - 5.78 M/cmm [facility] Hemoglobin 14.6 13.8 - 17.3 gm/dl [facility] HCT 42.6 39.5 - 50.2 % [facility] MCV 96(H) 81 - 95 fl [facility] MCH 32.8 27.6 - 33.0 pg [facility] MCHC 34.3 32.8 - 36.4 gm/dl [facility] PLT 122(L) 141 - 320 K/cmm [facility] RDW-CV 15.1(H) 11.8 - 14.1 % [facility] % Neutrophils 59.5 45.5 - 79.7 % [facility] % Lymphocytes 27.4 15.0 - 46.8 % [facility] % Monocytes 10.5 1.8 - 12.0 % [facility] % Eosinophils 1.0 0.6 - 6.9 % [facility] % Basophils 1.6(H) 0.2 - 1.4 % [facility] ABS Neutrophils 3.05 2.20 - 8.85 K/cmm [facility] ABS Lymphs 1.41 1.09 - 3.30 K/cmm [facility] ABS Monocytes 0.54 0.1 - 0.8 K/cmm [facility] ABS Eosinophils 0.05 0.03 - 0.61 K/cmm [facility] ABS Basophils 0.08 0.01 - 0.11 K/cmm [facility] Type of Diff: Automated [facility] 10/30/2007 0:05 EDT 10/30/2007 0:16 EDT Default Emergency MD PACKAGES & DNA PROB E ORDERABLES Performing Organization Address [facility] de Phone Number [facility] [address] [place] [address] * (ABNORMAL) BUN (10/30/2007 0:05 EDT) BUN 6(L) 10 - 26 mg/dl [facility] 10/30/2007 0:05 EDT 10/30/2007 0:16 EDT Default Emergency CHEMISTRY & BLOOD G ORDERABLES Performing Organization Address City/[facility] Co de Phone Number [facility] [address] [place] [address] documented in this encounter Visit Diagnoses Not on filedocumented in this encounter
--- OUTSIDE RECORDS SUMMARY | 2024-03-15 02:37 | XMS_ITS | Encounter Summary ---
Author Organization [facility] Address [address] [place] [address] Care Team Providers Care Dry Cleaning Manager Name Role Phone Unavailable Primary Care Provider Unavailabl e Encounter Details Date Type Department Care Team (Late st Contact Info) Description 05/17/2002 Results Only [facility] Family Medicine [facility] [address] [place], [place] [id number] Kevin Chery MD [address] [place] [address] Social History Tobacco Use Types Packs/Day Years Used Date Smoking Tobacco: Never Assessed Sex and Gender Information Value Date Recorded Sex Assigned at Not on file Gender Identity Not on file Sexual Orientation Not on file documented as of this encounter Plan of Treatment Not on file documented as of this encounter Procedures Procedure Name Priority Date/Time Associated Diagnosis Comments CREATININE Routine 05/17/2002 13:03 EDT URIC ACID Routine 05/17/2002 13:03 EDT BUN Routine 05/17/2002 13:03 EDT TSH Routine 05/17/2002 13:03 EDT documented in this encounter Results * URIC ACID (05/17/2002 13:03 EDT) Uric Acid 6.5 3.9 - 9.0 mg/dl [facility] 05/17/2002 13:0 3 EDT 05/17/2002 17:29 EDT Kevin Chery MD CHEMISTRY & BLO OD GAS ORDERABLES Performing Organization Address [facility] Co de Phone Number [facility] [address] [place] [address] * TSH (05/17/2002 13:03 EDT) TSH 1.31 0.35 - 5.50 uIU/ml [facility] 05/17/2002 13:0 3 EDT 05/17/2002 17:29 EDT Kevin Chery MD CHEMISTRY & BLO OD GAS ORDERABLES Performing Organization Address [facility] de Phone Number [facility] [address] [place] [address] * CREATININE (05/17/2002 13:03 EDT) Creatinine 0.8 0.7 - 1.5 mg/dl [facility] 05/17/2002 13:0 3 EDT 05/17/2002 17:29 EDT Kevin Chery MD HISTORICAL LAB FOR SQ LOAD Performing Organization Address [facility] de Phone Number [facility] [address] [place] [address] * BUN (05/17/2002 13:03 EDT) BUN 14 10 - 26 mg/dl [facility] 05/17/2002 13:0 3 EDT 05/17/2002 17:29 EDT Kevin Chery MD CHEMISTRY & BLO OD GAS ORDERABLES Performing Organization Address [facility] Co de Phone Number [facility] [address] [place] [address] documented in this encounter Visit Diagnoses Not on filedocumented in this encounter
--- OUTSIDE RECORDS SUMMARY | 2024-03-15 02:37 | XMS_ITS | Encounter Summary ---
Author Organization [facility] Address [address] [place] [address] Care Team Providers Care Instruction Assistant Principal Name Role Phone Unavailable Primary Care Provider Unavailabl e Encounter Details Date Type Department Care Team (Latest Contact Info) Description 12/04/2007 9:37 EDT - 12/04/2007 11:59 EDT Hospital Encounter [facility] - [facility] [address] [place] [address] Thom Kuo MD [address] [place] [address] Discharge Disposition: Home or Self Care Social History Tobacco Use Types Packs/Day Years Used Date Smoking Tobacco: Never Assessed Sex and Gender Information Value Date Recorded Sex Assigned at Not on file Gender Identity Not on file Sexual Orientation Not on file documented as of this encounter Discharge Disposition Disposition Code Departure Means Destination Home or Self Care documented in this encounter Plan of Treatment Not on file documented as of this encounter Visit Diagnoses Not on filedocumented in this encounter
--- OUTSIDE RECORDS SUMMARY | 2024-03-15 02:37 | XMS_ITS | Encounter Summary ---
Author Organization [facility] Address [address] [place] [address] Care Team Providers Care Lead Investigator Name Role Phone Unavailable Primary Care Provider Unavailabl e Encounter Details Date Type Department Care Team (Latest Contact Info) Description 07/13/2007 19:45 EST Hospital Encounter [facility] Emergency Department - Main [place] [address] [place], [place] [id number] Emergency, Default, MD Discharge Disposition: [facility] Social History Tobacco Use Types Packs/Day Years Used Date Smoking Tobacco: Never Assessed Sex and Gender Information Value Date Recorded Sex Assigned at Not on file Gender Identity Not on file Sexual Orientation Not on file documented as of this encounter Discharge Disposition Disposition Code Departure Means Destination Cancer [place]/[facility] documented in this encounter Plan of Treatment Not on file documented as of this encounter Visit Diagnoses Not on filedocumented in this encounter
--- OUTSIDE RECORDS SUMMARY | 2024-03-15 02:37 | XMS_ITS | Encounter Summary ---
Author Organization [facility] Address [address] [place] [address] Care Team Providers Care Lead Systems Engineer Name Role Phone Unavailable Primary Care Provider Unavailabl e Encounter Details Date Type Department Care Team ([facility] st Contact Info) Description 07/16/2007 Results Only [facility] Psychiatry [address] [place] [address] Thom Kuo MD [address] [place] [address] Social History Tobacco Use Types Packs/Day Years Used Date Smoking Tobacco: Never Assessed Sex and Gender Information Value Date Recorded Sex Assigned at Not on file Gender Identity Not on file Sexual Orientation Not on file documented as of this encounter Plan of Treatment Not on file documented as of this encounter Procedures Procedure Name Priority Date/Time Associated Diagnosis Comments COMPLETE BLOOD COUNT AND DIFFERENTIAL Routine 07/16/2007 22:00 EST COMPREHENSIVE METABOLIC PANEL (CMP) Routine 07/16/2007 22:00 EST documented in this encounter Results * (ABNORMAL) COMPREHENSIVE METABOLIC PANEL (07/16/2007 22:00 EST) Potassium 3.8 3.5 - 5.0 mEq/L [facility] Sodium 141 136 - 145 mEq/L [facility] Chloride 105 96 - 110 mEq/L [facility] CO2 25 24 - 32 mEq/L [facility] Total Alkaline Phosphatase 81 38 - 126 U/L [facility] Bilirubin, Total <0.5 0.2 - 1.3 mg/dl [facility] AST 100(H) 15 - 46 U/L [facility] ALT 136(H) 21 - 72 U/L [facility] Albumin 4.6 3.4 - 4.9 g/dl [facility] Total Protein 7.5 6.5 - 8.3 g/dl [facility] Creatinine 0.83 0.7 - 1.5 mg/dl [facility] GFR, Calculated >60 ml/min/1.7 3m2 [facility] BUN 18 10 - 26 mg/dl [facility] Calcium 10.2 8.5 - 10.5 mg/dl [facility] Calculated Calcium 10.0 8.5 - 10.5 mg/dl [facility] Glucose, Serum 127(H) 70 - 100 mg/dl [facility] Fasting? Unknown [facility] 07/16/2007 22:0 0 EST 07/17/2007 13:17 EST Thom Kuo MD CHEMISTRY & BLOOD GA S ORDERABLES [facility] [address] [place] [address] * (ABNORMAL) HEMAGRAM AND DIFFERENTIAL (07/16/2007 22:00 EST) WBC 6.14 4.0 - 10.4 K/cmm [facility] RBC 4.15(L) 4.36 - 5.78 M/cmm [facility] Hemoglobin 14.1 13.8 - 17.3 gm/dl [facility] HCT 40.2 39.5 - 50.2 % [facility] LAB MCV 97(H) 81 - 95 fl [facility] MCH 34.0(H) 27.6 - 33.0 pg [facility] MCHC 35.1 32.8 - 36.4 gm/dl [facility] PLT 138(L) 141 - 320 K/cmm [facility] RDW-CV 14.0 11.8 - 14.1 % [facility] Neutrophils 58.0 45.5 - 79.7 % [facility] % Bands 1.0 % [facility] Lymphocytes 27.0 15.0 - 46.8 % [facility] % Atyp Lymphs 3.0 % [facility] Monocytes 5.0 1.8 - 12.0 % [facility] Eosinophils 4.0 0.6 - 6.9 % [facility] Basophils 2.0(H) 0.2 - 1.4 % [facility] ABS Neutrophils 3.56 2.20 - 8.85 K/cmm [facility] ABS Bands 0.06 K/cmm [facility] ABS Lymphs 1.66 1.09 - 3.30 K/cmm [facility] ABS Atyp Lymphs 0.18 K/cmm [facility]AC[facility] ABS Monocytes 0.31 0.1 - 0.8 K/cmm [facility] ABS Eosinophils 0.25 0.03 - 0.61 K/cmm [facility] ABS Basophils 0.12(H) 0.01 - 0.11 K/cmm [facility] RBC Morphology Normal [facility] Type of Diff: Manual [facility] 07/16/2007 22:0 0 EST 07/17/2007 13:17 EST Thom Kuo MD PACKAGES & DNA PROBE ORDERABLES Performing Organization Address City/State/[facility] Co de Phone Number [facility] [address] [place] [address] documented in this encounter Visit Diagnoses Not on filedocumented in this encounter
--- OUTSIDE RECORDS SUMMARY | 2024-03-15 02:37 | XMS_ITS | Encounter Summary ---
Author Organization [facility] Address [address] [place] [address] Care Team Providers Care Manufacturing Accountant Name Role Phone Unavailable Primary Care Provider Unavailabl e Encounter Details Date Type Department Care Team (Latest Contact Info) Description 10/30/2007 12:17 EDT Hospital Encounter [facility] Emergency Department - [facility] [address] [place], [place] [id number] Emergency, Default, MD Discharge Disposition: Discharged to Other Facility Social History Tobacco Use Types Packs/Day Years Used Date Smoking Tobacco: Never Assessed Sex and Gender Information Value Date Recorded Sex Assigned at Not on file Gender Identity Not on file Sexual Orientation Not on file documented as of this encounter Discharge Disposition Disposition Code Departure Means Destination Discharged to Other Facility documented in this encounter Plan of Treatment Not on file documented as of this encounter Visit Diagnoses Not on filedocumented in this encounter
--- OUTSIDE RECORDS SUMMARY | 2024-03-15 02:37 | XMS_ITS | Encounter Summary ---
Author Organization [facility] Address [address] [place] [address] Care Team Providers Care Enrollment Nurse Name Role Phone Unavailable Primary Care Provider Unavailabl e Encounter Details Date Type Department Care Team (Late st Contact Info) Description 11/05/2007 Results Only [facility] - [facility] conversion [address] [place] [address] Emergency, Default, Social History Tobacco Use Types Packs/Day Years Used Date Smoking Tobacco: Never Assessed Sex and Gender Information Value Date Recorded Sex Assigned at Not on file Gender Identity Not on file Sexual Orientation Not on file documented as of this encounter Plan of Treatment Not on file documented as of this encounter Procedures Procedure Name Priority Date/Time Associated Diagnosis Comments HOLD SST Routine 11/05/2007 5:10 EDT TROPONIN I Routine 11/05/2007 5:10 EDT CK MB WITH TOTAL CK Routine 11/05/2007 5:10 EDT documented in this encounter Results * TROPONIN I (11/05/2007 5:10 EDT) Troponin I pre 2011 <0.05 ng/ml [facility] Comment: Reference Range: Normal: ??Less than 0.05 Indeterminate: ??0.05-0.80 Positive: ??Greater than 0.80 11/05/2007 5:10 EDT 11/05/2007 5:16 EDT Default Emergency CHEMISTRY & BLOOD G ORDERABLES [facility] [address] [place] [address] * HOLD SST (11/05/2007 5:10 EDT) Hold SST Hold for further testing. Specimen will be held for 30 days. [facility] 11/05/2007 5:10 EDT 11/05/2007 5:16 EDT Default Emergency MD LAB INFO SERVICE AN D SUPPORT & PHONE RESULT Performing Organization Address [facility] Co de Phone Number [facility] [address] [place] [address] * CK MB WITH TOTAL CK (11/05/2007 5:10 EDT) CK 202 0 - 250 U/L [facility] MB 1.7 0 - 5.0 ng/ml [facility] CK-MB Index Not calculated , normal MB. 0 - 2.5 [facility] 11/05/2007 5:10 EDT 11/05/2007 5:16 EDT Default Emergency MD CHEMISTRY & BLOOD G ORDERABLES Performing Organization Address City/[facility]/ZIP Co de Phone Number [facility] [address] [place] [address] documented in this encounter Visit Diagnoses Not on filedocumented in this encounter
--- OUTSIDE RECORDS SUMMARY | 2024-03-15 02:37 | XMS_ITS | Encounter Summary ---
Author Organization [facility] Address [address] [place] [address] Care Team Providers Care Artist Mannequin Coloring Name Role Phone Unknown, Provider Primary Care Provider [phone] Encounter Details Date Type Department Care Team (Late st Contact Info) Description 08/19/2022 Lab Requisition [facility] Pathology & Laboratory Medicine - [facility] [address] [place] [address] Outr Resulting Lab, Provider Social History Tobacco Use Types Packs/Day Years Used Date Smoking Tobacco: Never Assessed Sex and Gender Information Value Date Recorded Sex Assigned at Not on file Gender Identity Not on file Sexual Orientation Not on file documented as of this encounter Plan of Treatment Not on file documented as of this encounter Procedures Procedure Name Priority Date/Time Associated Diagnosis Comments LYME AB Routine 08/19/2022 11:30 EST documented in this encounter Results * LYME AB (08/19/2022 11:30 EST) Lyme Ab Negative Negative 08/20/2022 10:56 EST [facility] Blood VENOUS BLOOD / Unknown 08/19/2022 11:30 EST 08/19/2022 21:54 EST Provider Outr Resulting Lab IMMUNOLOGY A ND SEROLOGY ORDERABLES [facility] [address] [place] [address] documented in this encounter Visit Diagnoses Not on filedocumented in this encounter Care Teams Artist Mannequin Coloring Relationship Specialty Start Date End Date Unknown, ProviderMD PCP - General 11/27/15 documented as of this encounter
--- OUTSIDE RECORDS SUMMARY | 2024-03-15 02:37 | XMS_ITS | Encounter Summary ---
Author Organization [facility] Address [address] [place] [address] Care Team Providers Care Side Laster Tack Name Role Phone Unavailable Primary Care Provider Unavailabl e Encounter Details Date Type Department Care Team (Late st Contact Info) Description 06/18/2002 Results Only [facility] Family Medicine [facility] [address] [place], [place] [id number] Kevin Chery MD [address] [place] [address] Social History Tobacco Use Types [...] Date/Time Associated Diagnosis Comments COMPLETE BLOOD COUNT Routine 06/18/2002 10:37 EST URIC ACID Routine 06/18/2002 10:37 EST HEPATIC FUNCTION PANEL (ALB,ALK PHOS,ALT,AST,DBIL,T OT CHRIS,TOT PROT) Routine 06/18/2002 10:37 EST documented in this encounter Results * URIC ACID (06/18/2002 10:37 EST) Uric Acid 7.1 3.9 - 9.0 mg/dl [facility] 06/18/2002 10:3 7 EST 06/18/2002 14:03 EST Kevin Chery MD CHEMISTRY & BLO OD GAS ORDERABLES Performing Organization Address [facility] Co de Phone Number [facility] [address] [place] [address] * LIVER FUNCTION TESTS (06/18/2002 10:37 EST) Albumin 4.5 3.0 - 5.5 g/dl [facility] Total Protein 7.2 6.0 - 8.5 g/dl [facility] Total Alkaline Phosphatase 75 38 - 126 U/L [facility] ALT 73 15 - 75 U/L [facility] AST 39 8 - 50 U/L [facility] Unconjugated Bilirubin 0.4 0.1 - 1.1 mg/dl [facility] Conjugated Bilirubin 0.0 0.0 - 0.3 mg/dl [facility] Bilirubin, Total 0.5 0.2 - 1.3 mg/dl [facility] 06/18/2002 10:3 7 EST 06/18/2002 14:03 EST Kevin Chery MD CHEMISTRY & BLO OD GAS ORDERABLES Performing Organization Address City/[facility] Co de Phone Number [facility] [address] [place] [address] * (ABNORMAL) HEMAGRAM (06/18/2002 10:37 EST) WBC 5.02 4.0 - 10.4 K/cmm [facility] RBC 4.51 4.36 - 5.78 M/cmm [facility] Hemoglobin 15.5 13.8 - 17.3 gm/dl [facility] HCT 45.0 39.5 - 50.2 % [facility] MCV 100(H) 81 - 95 fl [facility] MCH 34.4(H) 27.6 - 33.0 pg [facility] MCHC 34.5 32.8 - 36.4 gm/dl [facility] PLT 196 141 - 320 K/cmm [facility] RDW-CV 12.1 11.8 - 14.1 % [facility] 06/18/2002 10:3 7 EST 06/18/2002 14:03 EST Kevin Chery MD HEMATOLOGY & PF 4 ORDERABLES Performing Organization Address City/State/[facility] Co de Phone Number [facility] [address] [place] [address] documented in this encounter Visit Diagnoses Not on filedocumented in this encounter
--- OUTSIDE RECORDS SUMMARY | 2024-03-15 02:37 | XMS_ITS | Encounter Summary ---
Author Organization [facility] Address [address] [place] [address] Care Team Providers Care Immunochemist Name Role Phone Unavailable Primary Care Provider Unavailabl e Encounter Details Date Type Department Care Team (Latest Contact Info) Description 10/29/2007 22:15 EDT - 10/30/2007 11:59 EDT Hospital Encounter [facility] Emergency Department - [facility] [address] [place] [address] Emergency, Default, MD Discharge Disposition: Cancer Center/[facility] Social History Tobacco Use Types Packs/Day Years Used Date Smoking Tobacco: Never Assessed Sex and Gender Information Value Date Recorded Sex Assigned at Not on file Gender Identity Not on file Sexual Orientation Not on file documented as of this encounter Discharge Disposition Disposition Code Departure Means Destination Cancer [place]/[facility] documented in this encounter Plan of Treatment Not on file documented as of this encounter Procedures Procedure Name Priority Date/Time Associated Diagnosis Comments TROPONIN I Routine 10/29/2007 23:00 EDT COMPLETE BLOOD COUNT AND DIFFERENTIAL Routine 10/29/2007 23:00 EDT documented in this encounter Results * TROPONIN I (10/29/2007 23:00 EDT) Troponin I pre 2011 <0.05 ng/ml [facility] Comment: Reference Range: Normal: ??Less than 0.05 Indeterminate: ??0.05-0.80 Positive: ??Greater than 0.80 10/29/2007 23:0 0 EDT 10/29/2007 23:05 EDT Default Emergency MD CHEMISTRY & BLOOD G ORDERABLES Performing Organization Address City/State/[facility] Co de Phone Number [facility] [address] [place] [address] * (ABNORMAL) HEMAGRAM AND DIFFERENTIAL (10/29/2007 23:00 EDT) WBC 4.12 4.0 - 10.4 K/cmm [facility] RBC 4.42 4.36 - 5.78 M/cmm [facility] Hemoglobin 14.5 13.8 - 17.3 gm/dl [facility] HCT 42.3 39.5 - 50.2 % [facility] MCV 96(H) 81 - 95 fl [facility] MCH 32.8 27.6 - 33.0 pg [facility] MCHC 34.3 32.8 - 36.4 gm/dl [facility] PLT 118(L) 141 - 320 K/cmm [facility] RDW-CV 14.6(H) 11.8 - 14.1 % [facility] % Neutrophils 56.7 45.5 - 79.7 % [facility] % Lymphocytes 30.6 15.0 - 46.8 % [facility] % Monocytes 9.2 1.8 - 12.0 % [facility] % Eosinophils 1.6 0.6 - 6.9 % [facility] % Basophils 1.9(H) 0.2 - 1.4 % [facility] ABS Neutrophils 2.34 2.20 - 8.85 K/cmm [facility] ABS Lymphs 1.26 1.09 - 3.30 K/cmm [facility] ABS Monocytes 0.38 0.1 - 0.8 K/cmm [facility] ABS Eosinophils 0.06 0.03 - 0.61 K/cmm [facility] ABS Basophils 0.08 0.01 - 0.11 K/cmm [facility] Type of Diff: Automated [facility] 10/29/2007 23:0 0 EDT 10/29/2007 23:05 EDT Default Emergency PACKAGES & DNA PROB E ORDERABLES [facility] [address] [place] [address] documented in this encounter Visit Diagnoses Not on filedocumented in this encounter
--- OUTSIDE RECORDS SUMMARY | 2024-03-15 02:37 | XMS_ITS | Encounter Summary ---
Author Organization [facility] Address [address] [place] [address] Care Team Providers Care Fence Laborer Name Role Phone Unavailable Primary Care Provider Unavailabl e Encounter Details Date Type Department Care Team (Latest Contact Info) Description 05/09/2001 18:12 EDT Hospital Encounter [facility] [address] [place] [address] Kevin Chery MD [address] [place] [phone] Discharge Disposition: Auto Discharge Social History Tobacco Use Types Packs/Day Years Used Date Smoking Tobacco: Never Assessed Sex and Gender Information Value Date Recorded Sex Assigned at Not on file Gender Identity Not on file Sexual Orientation Not on file documented as of this encounter Discharge Disposition Disposition Code Departure Means Destination Auto Discharge documented in this encounter Plan of Treatment Not on file documented as of this encounter Procedures Procedure Name Priority Date/Time Associated Diagnosis Comments CT RECONSTRUCTION ANY PLANE/3D Routine 05/09/2001 19:[address] LUMBAR SPINE WO CONTRAST Routine 05/09/2001 19:15 EDT documented in this encounter Results * CT RECONSTRUCTION ANY PLANE/3D (05/09/2001 19:15 EDT) Anatomical Region Laterality Modality Other 05/09/2001 19:1 5 EDT Impressions 06/20/2009 2:17 EST IMPRESSION: Central disc herniation at the L4-5 level which can be associated with L5-S1 radiculopathy. The L4 nerve is unimpinged. /tns Narrative 06/20/2009 2:17 EST CHRONIC BACK PAIN R/O DISC DS CT RECONSTRUCTIONS OF THE LOWER LUMBAR SPINE IN THE SAGITTAL AND CORONAL PLANES; CT OF THE LUMBAR SPINE: 05/09/01, 1915 hours. There are no comparison examinations available. TECHNIQUE: CT reconstructions of the lower lumbar spine in the sagittal and coronal planes. CT of the lumbar spine with axial images from S1 through L3. HISTORY: Chronic back pain. Rule out disc disease. FINDINGS: There is central disc herniation of the L4-5 intervertebral disc, which is compressing the subarachnoid space. There is associated narrowing of the disc space also at L4-5. There is no impingement of the L4 nerve. There is no other disc herniation is seen. No lytic or blastic lesions are seen. There are no soft tissue masses. Calcification is seen in the common iliacs. There is no narrowing of the neural foramina. Procedure Note Gasper Cai MD / Zina Myles MD - 06/20/2009 CHRONIC BACK PAIN R/O DISC DS CT RECONSTRUCTIONS OF THE LOWER LUMBAR SPINE IN THE SAGITTAL AND CORONAL PLANES; CT OF THE LUMBAR SPINE: 05/09/01, 1915 hours. There are no comparison examinations available. TECHNIQUE: CT reconstructions of the lower lumbar spine in the sagittal and coronal planes. CT of the lumbar spine with axial images from S1 through L3. HISTORY: Chronic back pain. Rule out disc disease. FINDINGS: There is central disc herniation of the L4-5 intervertebral disc, which is compressing the subarachnoid space. There is associated narrowing of the disc space also at L4-5. There is no impingement of the L4 nerve. There is no other disc herniation is seen. No lytic or blastic lesions are seen. There are no soft tissue masses. Calcification is seen in the common iliacs. There is no narrowing of the neural foramina. IMPRESSION IMPRESSION: Central disc herniation at the L4-5 level which can be associated with L5-S1 radiculopathy. The L4 nerve is unimpinged. /tns Kevin Chery MD IMG CT ORDERABL ES * CT LUMBAR SPINE WO CONTRAST (05/09/2001 19:15 EDT) Anatomical Region Laterality Modality Other 05/09/2001 19:1 5 EDT Narrative 06/11/2009 2:21 EST CHRONIC BACK PAIN R/O DISC DS Procedure Note Gasper Cai MD / Zina Myles MD - 06/11/2009 CHRONIC BACK PAIN R/O DISC DS Kevin Chery MD IMG CT ORDERABL ES documented in this encounter Visit Diagnoses Not on filedocumented in this encounter
--- OUTSIDE RECORDS SUMMARY | 2024-03-15 02:37 | XMS_ITS | Encounter Summary ---
Author Organization [facility] Address [address] [place] [address] Care Team Providers Care Service Or Work Dispatcher Name Role Phone Unavailable Primary Care Provider Unavailabl e Encounter Details Date Type Department Care Team (Late st Contact Info) Description 05/20/2002 Results Only [facility] Family Medicine [facility] [address] [place] [address] Kevin Chery MD [address] [place] [phone] Social History Tobacco Use Types Packs/Day Years Used Date Smoking Tobacco: Never Assessed Sex and Gender Information Value Date Recorded Sex Assigned at Not on file Gender Identity Not on file Sexual Orientation Not on file documented as of this encounter Plan of Treatment Not on file documented as of this encounter Procedures Procedure Name Priority Date/Time Associated Diagnosis Comments URINE INFORMATION Routine 05/20/2002 10: 00 EDT URIC ACID, URINE 24HR Routine 05/20/2002 10:00 EDT documented in this encounter Results * URIC ACID, URINE 24HR (05/20/2002 10:00 EDT) Uric Acid, Ur 19.4 mg/dl [facility] Uric Acid, 24H Ur Calc 378 250 - 750 mg/24 hr [facility] 05/20/2002 10:0 0 EDT 05/23/2002 7:31 EDT Kevin Chery MD URINALYSIS DANYEL SCHUMACHER Performing Organization Address [facility] Co de Phone Number [facility] [address] [place] [address] * URINE INFORMATION (05/20/2002 10:00 EDT) Period 24 hrs [facility] Specimen Volume 1950 mls [facility] 05/20/2002 10:0 0 EDT 05/23/2002 7:31 EDT Kevin Chery MD URINALYSIS DANYEL SCHUMACHER Performing Organization Address [facility] de Phone Number [facility] [address] [place] [address] documented in this encounter Visit Diagnoses Not on filedocumented in this encounter
--- OUTSIDE RECORDS SUMMARY | 2024-03-15 02:37 | XMS_ITS | Encounter Summary ---
Author Organization [facility] Address [address] [place] [address] Care Team Providers Care Pillow Cleaner Name Role Phone Unavailable Primary Care Provider Unavailabl e Encounter Details Date Type Department Care Team (Latest Contact Info) Description 07/30/2007 10:11 EST - 07/30/2007 11:59 EST Hospital Encounter [facility] - Other [address] [place] [address] Thom Kuo MD [address] [place] [address] Discharge Disposition: Home-Health Care Svc Social History Tobacco Use Types Packs/Day Years Used Date Smoking Tobacco: Never Assessed Sex and Gender Information Value Date Recorded Sex Assigned at Not on file Gender Identity Not on file Sexual Orientation Not on file documented as of this encounter Discharge Disposition Disposition Code Departure Means Destination Home-Health Care Svc documented in this encounter Plan of Treatment Not on file documented as of this encounter Visit Diagnoses Not on filedocumented in this encounter
--- OUTSIDE RECORDS SUMMARY | 2024-03-15 02:37 | XMS_ITS | Encounter Summary ---
Author Organization [facility] Address [address] [place] [address] Care Team Providers Care Rn Oncology Clinical Name Role Phone Unavailable Primary Care Provider Unavailabl e Encounter Details Date Type Department Care Team (Late st Contact Info) Description 06/18/2002 11:04 [facility] Hospital Encounter [facility] - Other [address] [place] [address] Kevin Chery MD [address] [place] [phone] Unknown, Provider, Social History Tobacco Use Types Packs/Day Years [...]
--- OUTSIDE RECORDS SUMMARY | 2024-03-15 02:37 | XMS_ITS | Encounter Summary ---
Author Organization [facility] Address [address] [place] [address] Care Team Providers Care Army Ranger Name Role Phone Unavailable Primary Care Provider Unavailabl e Encounter Details Date Type Department Care Team (Latest Contact Info) Description 04/24/2001 11:18 EDT - 04/24/2001 11:59 EDT Hospital Encounter [facility] Emergency Department - [facility] [address] [place] [address] Emergency, Default, MD Discharge Disposition: Home or Self Care Social [...]
--- OUTSIDE RECORDS SUMMARY | 2024-03-15 02:37 | XMS_ITS | Encounter Summary ---
Author Organization [facility] Address [address] [place] [address] Care Team Providers Care Rn Provider Relations Name Role Phone Unavailable Primary Care Provider Unavailabl e Encounter Details Date Type Department Care Team (Latest Contact Info) Description 04/26/2001 15:14 EDT Hospital Encounter [facility] - Other [address] [place] [address] Kevin Chery MD [address] [place] [phone] Unknown, Provider, Discharge Disposition: Auto Discharge Social History Tobacco [...] Associated Diagnosis Comments COMPLETE BLOOD COUNT Routine 04/26/2001 14:36 EDT TSH Routine 04/26/2001 14:36 EDT LIPID PROFILE (INCLUDES CHOLESTEROL, TRIGLYCERIDES, HDL, LDL) Routine 04/26/2001 14:36 EDT COMPREHENSIVE METABOLIC PANEL (CMP) Routine 04/26/2001 14:36 EDT documented in this encounter Results * TSH (04/26/2001 14:36 EDT) TSH 0.79 0.35 - 5.50 uIU/ml [facility] 04/26/2001 14:3 6 EDT 04/26/2001 15:44 EDT Kevin Chery MD CHEMISTRY & BLO OD GAS ORDERABLES Performing Organization Address [facility] Phone Number [facility] [address] [place] [address] * LIPID PROFILE (INCLUDES CHOLESTEROL, TRIGLYCERIDES, HDL, LDL) (04/26/2001 14:36 EDT) Pathologist [facility] Cholesterol 243 mg/dl [facility] Comment: Desirable:<200 Borderline:200-239 High Risk:>tk=[id number] Triglycerides 156 35 - 160 mg/dl [facility] HDL 68 mg/dl [facility] Comment: Highly Desirable:>60 Desirable:35-60 High Risk:<35 LDL, Calculated 144 mg/dl [facility] Comment: Desirable:<130 Borderline:130-159 High Risk:>iv=192 Chol/HDL Ratio 3.6 [facility] 04/26/2001 14:3 6 EDT 04/26/2001 15:44 EDT Kevin Chery MD CHEMISTRY & BLO OD GAS ORDERABLES Performing Organization Address [facility] de Phone Number [facility] [address] [place] [address] * (ABNORMAL) COMPREHENSIVE METABOLIC PANEL (04/26/2001 14:36 EDT) Pathologist [facility] Potassium 4.5 3.5 - 5.0 mEq/L [facility] Sodium 139 136 - 145 mEq/L [facility] Chloride 101 96 - 110 mEq/L [facility] CO2 22(L) 24 - 30 mEq/L [facility] Total Alkaline Phosphatase 83 38 - 126 U/L [facility] Bilirubin, Total 0.4 0.2 - 1.3 mg/dl [facility] AST 49 8 - 50 U/L [facility] ALT 71 15 - 75 U/L [facility] Albumin 4.9 3.0 - 5.5 g/dl [facility] Total Protein 8.2 6.0 - 8.5 g/dl [facility] Creatinine 1.1 0.7 - 1.5 mg/dl [facility] BUN 16 10 - 26 mg/dl [facility] Calcium 10.8(H) 8.5 - 10.5 mg/dl [facility] Calculated Calcium 10.3 8.5 - 10.5 mg/dl [facility] Glucose, Serum 117(H) 70 - 110 mg/dl [facility] Albumin/Globulin Ratio 1.5 [facility] 04/26/2001 14:3 6 EDT 04/26/2001 15:44 EDT Kevin Chery MD CHEMISTRY & BLO OD GAS ORDERABLES Performing Organization Address [facility] Co de Phone Number [facility] [address] [place] [address] * (ABNORMAL) HEMAGRAM (04/26/2001 14:36 EDT) WBC 12.09(H) 4.0 - 10.4 K/cmm [facility] RBC 4.61 4.36 - 5.78 M/cmm [facility] Hemoglobin 15.8 13.8 - 17.3 gm/dl [facility] HCT 45.3 39.5 - 50.2 % [facility] MCV 98(H) 81 - 95 fl [facility] MCH 34.3(H) 27.6 - 33.0 pg [facility] MCHC 34.9 32.8 - 36.4 gm/dl [facility] PLT 198 141 - 320 K/cmm [facility] RDW-CV 12.0 11.8 - 14.1 % [facility] 04/26/2001 14:3 6 EDT 04/26/2001 15:44 EDT Kevin Chery MD HEMATOLOGY & PF 4 ORDERABLES Performing Organization Address [facility] Co de Phone Number [facility] [address] [place] [address] documented in this encounter Visit Diagnoses Not on filedocumented in this encounter
--- OUTSIDE RECORDS SUMMARY | 2024-03-15 02:37 | XMS_ITS | Encounter Summary ---
Author Organization [facility] Address [address] [place] [address] Care Team Providers Care Director Database Name Role Phone Unavailable Primary Care Provider Unavailabl e Encounter Details Date Type Department Care Team ([facility] st Contact Info) Description 12/04/2007 Results Only [facility] Psychiatry [address] [place] [address] Thom Kuo MD [address] [place] [address] Social History Tobacco Use Types Packs/Day Years [...] Comments COMPLETE BLOOD COUNT AND DIFFERENTIAL Routine 12/04/2007 9:30 EDT COMPREHENSIVE METABOLIC PANEL (CMP) Routine 12/04/2007 9:30 EDT documented in this encounter Results * (ABNORMAL) COMPREHENSIVE METABOLIC PANEL (12/04/2007 9:30 EDT) Potassium 4.4 3.5 - 5.0 mEq/L [facility] Sodium 141 136 - 145 mEq/L [facility] Chloride 105 96 - 110 mEq/L [facility] CO2 29 24 - 32 mEq/L [facility] Total Alkaline Phosphatase 77 38 - 126 U/L [facility] Bilirubin, Total <0.5 0.2 - 1.3 mg/dl [facility] AST 75(H) 15 - 46 U/L [facility] ALT 154(H) 21 - 72 U/L [facility] Albumin 4.5 3.4 - 4.9 g/dl [facility] Total Protein 7.0 6.5 - 8.3 g/dl [facility] Creatinine 0.73 0.7 - 1.5 mg/dl [facility] GFR, Calculated >60 ml/min/1.7 3m2 [facility] BUN 13 10 - 26 mg/dl [facility] Calcium 9.7 8.5 - 10.5 mg/dl [facility] Calculated Calcium 9.6 8.5 - 10.5 mg/dl [facility] Glucose, Serum 102(H) 70 - 100 mg/dl [facility] Fasting? No [facility] 12/04/2007 9:30 EDT 12/04/2007 14:03 EDT Thom Kuo MD CHEMISTRY & BLOOD GA S ORDERABLES [facility] [address] [place] [address] * (ABNORMAL) HEMAGRAM AND DIFFERENTIAL (12/04/2007 9:30 EDT) WBC 7.56 4.0 - 10.4 K/cmm [facility] RBC 4.10(L) 4.36 - 5.78 M/cmm [facility] Hemoglobin 14.2 13.8 - 17.3 gm/dl [facility] HCT 40.4 39.5 - 50.2 % [facility] MCV 99(H) 81 - 95 fl [facility] MCH 34.7(H) 27.6 - 33.0 pg [facility] MCHC 35.1 32.8 - 36.4 gm/dl [facility] PLT 172 141 - 320 K/cmm [facility] RDW-CV 13.7 11.8 - 14.1 % [facility] % Neutrophils 73.3 45.5 - 79.7 % [facility] % Lymphocytes 14.2(L) 15.0 - 46.8 % [facility] % Monocytes 10.9 1.8 - 12.0 % [facility] % Eosinophils 1.2 0.6 - 6.9 % [facility] % Basophils 0.4 0.2 - 1.4 % [facility] ABS Neutrophils 5.54 2.20 - 8.85 K/cmm [facility] ABS Lymphs 1.08(L) 1.09 - 3.30 K/cmm [facility] ABS Monocytes 0.82(H) 0.1 - 0.8 K/cmm [facility] ABS Eosinophils 0.09 0.03 - 0.61 K/cmm [facility] ABS Basophils 0.03 0.01 - 0.11 K/cmm [facility] Type of Diff: Automated [facility] 12/04/2007 9:30 EDT 12/04/2007 14:03 EDT Thom Kuo MD PACKAGES & DNA PROBE ORDERABLES [facility] [address] [place] [address] documented in this encounter Visit Diagnoses Not on filedocumented in this encounter
--- OUTSIDE RECORDS SUMMARY | 2024-03-15 02:37 | XMS_ITS | Encounter Summary ---
Author Organization [facility] Address [address] [place] [address] Care Team Providers Care Cane Cutter Name Role Phone Unavailable Primary Care Provider Unavailabl e Encounter Details Date Type Department Care Team ([facility] st Contact Info) Description 07/30/2007 Results Only [facility] Psychiatry [address] [place] [address] Thom Kuo MD [address] [place] [address] Social History Tobacco Use Types Packs/Day Years [...] Comments COMPLETE BLOOD COUNT AND DIFFERENTIAL Routine 07/30/2007 21:05 EST COMPREHENSIVE METABOLIC PANEL (CMP) Routine 07/30/2007 21:05 EST documented in this encounter Results * (ABNORMAL) COMPREHENSIVE METABOLIC PANEL (07/30/2007 21:05 EST) Potassium 4.1 3.5 - 5.0 mEq/L [facility] Sodium 141 136 - 145 mEq/L [facility] Chloride 108 96 - 110 mEq/L [facility] CO2 24 24 - 32 mEq/L [facility] Total Alkaline Phosphatase 70 38 - 126 U/L [facility] Bilirubin, Total <0.5 0.2 - 1.3 mg/dl [facility] AST 31 15 - 46 U/L [facility] ALT 78(H) 21 - 72 U/L [facility] Albumin 4.2 3.4 - 4.9 g/dl [facility] Total Protein 7.0 6.5 - 8.3 g/dl [facility] Creatinine 0.85 0.7 - 1.5 mg/dl [facility] GFR, Calculated >60 ml/min/1.7 3m2 [facility] BUN 19 10 - 26 mg/dl [facility] Calcium 9.5 8.5 - 10.5 mg/dl [facility] Calculated Calcium 9.7 8.5 - 10.5 mg/dl [facility] Glucose, Serum 111(H) 70 - 100 mg/dl [facility] Fasting? No [facility] 07/30/2007 21:0 5 EST 2007 14:06 EST Thom Kuo MD CHEMISTRY & BLOOD GA S ORDERABLES [facility] [address] [place] [address] * (ABNORMAL) HEMAGRAM AND DIFFERENTIAL (07/30/2007 21:05 EST) WBC 8.35 4.0 - 10.4 K/cmm [facility] RBC 4.11(L) 4.36 - 5.78 M/cmm [facility] Hemoglobin 14.1 13.8 - 17.3 gm/dl [facility] HCT 39.5 39.5 - 50.2 % [facility] MCV 96(H) 81 - 95 fl [facility] MCH 34.2(H) 27.6 - 33.0 pg [facility] MCHC 35.5 32.8 - 36.4 gm/dl [facility] PLT 238 141 - 320 K/cmm [facility] RDW-CV 13.4 11.8 - 14.1 % [facility] % Neutrophils 65.2 45.5 - 79.7 % [facility] % Lymphocytes 23.4 15.0 - 46.8 % [facility] % Monocytes 6.4 1.8 - 12.0 % [facility] % Eosinophils 3.9 0.6 - 6.9 % [facility] % Basophils 1.1 0.2 - 1.4 % [facility] ABS Neutrophils 5.44 2.20 - 8.85 K/cmm [facility] ABS Lymphs 1.96 1.09 - 3.30 K/cmm [facility] ABS Monocytes 0.53 0.1 - 0.8 K/cmm [facility] ABS Eosinophils 0.33 0.03 - 0.61 K/cmm [facility] ABS Basophils 0.09 0.01 - 0.11 K/cmm [facility] Type of Diff: Automated [facility] 07/30/2007 21:0 5 EST 2007 14:06 EST Thom Kuo MD PACKAGES & DNA PROBE ORDERABLES [facility] [address] [place] [address] documented in this encounter Visit Diagnoses Not on filedocumented in this encounter
--- OUTSIDE RECORDS SUMMARY | 2024-03-15 02:37 | XMS_ITS | Clinical Summary ---
Author Organization [facility] Address [address] [place] [address] Care Team Providers Care Works Manager Name Role Phone Unknown, Provider Primary Care Provider [phone] Social History Tobacco Use Types Packs/Day Years Used Date Smoking Tobacco: Never Assessed Sex and Gender Information Value Date Recorded Sex Assigned at Not on file Gender Identity Not on file Sexual Orientation Not on file Plan of Treatment Health Maintenance Due Date Last Done Comments RSV Immunization ( o r 60+ Years) (1 - 1-dose 60+ series) 2017 Fall Risk Screening 2022 COVID-19 Vaccine ( season) 2023 Hepatitis C Screen Completed 02/10/2021 Procedures Procedure Name Priority Date/Time Associated Diagnosis Comments HEPATITIS C AB W REFLEX TO HCV RNA BY PCR Routine 02/10/2021 15:19 EDT from Last 3 Months or Most Recently Relevant to Health Maintenance Results * HEPATITIS C AB W REFLEX TO HCV RNA BY PCR (02/10/2021 15:19 EDT) Hep C Antibody Negative Negative 02/12/2021 10:23 EDT [facility] Blood VENOUS BLOOD / Unknown 02/10/2021 15:19 EDT 02/11/2021 15:28 EDT Provider Outr Resulting Lab CHEMISTRY & BLOOD GAS ORDERABLES [facility] [address] [place] [address] from Last 3 Months or Most Recently Relevant to Health Maintenance Care Teams Works Manager Relationship Specialty Start Date End Date Unknown, Provider, PCP - General 11/27/15
--- OUTSIDE RECORDS SUMMARY | 2024-03-15 02:37 | XMS_ITS | Encounter Summary ---
Author Organization [facility] Address [address] [place] [address] Care Team Providers Care Setter Machine Name Role Phone Unavailable Primary Care Provider Unavailabl e Encounter Details Date Type Department Care Team (Latest Contact Info) Description 05/21/2002 19:41 EDT Hospital Encounter [facility] - Other [address] [place] [address] Kevin Chery MD [address] [place] [phone] Unknown, Provider, Discharge Disposition: Auto Discharge Social [...]
--- OUTSIDE RECORDS SUMMARY | 2024-03-15 02:37 | XMS_ITS | Referral Summary ---
Author Organization [facility] Address [address] [place] [address] Care Team Providers Care Tie Cutter Name Role Phone Unknown, Provider Primary Care Provider [phone] Social History Tobacco Use Types Packs/Day Years Used Date Smoking Tobacco: Never Assessed Sex and Gender Information Value Date Recorded Sex Assigned at Not on file Gender Identity Not on file Sexual Orientation Not on file Plan of Treatment Not on file Procedures Procedure Name Priority Date/Time Associated Diagnosis Comments HEPATITIS C AB W REFLEX TO HCV RNA BY PCR Routine 02/10/2021 15:19 EDT from Last 3 Months or Most Recently Relevant to Health Maintenance Results * HEPATITIS C AB W REFLEX TO HCV RNA BY PCR (02/10/2021 15:19 EDT) Hep C Antibody Negative Negative 02/12/2021 10:23 EDT [facility] Blood VENOUS BLOOD / Unknown 02/10/2021 15:19 EDT 02/11/2021 15:28 EDT Provider Outr Resulting Lab CHEMISTRY & BLOOD GAS ORDERABLES [facility] [address] [place] [address] from Last 3 Months or Most Recently Relevant to Health Maintenance Care Teams Tie Cutter Relationship Specialty Start Date End Date Unknown, Provider, PCP - General 11/27/15
--- OUTSIDE RECORDS SUMMARY | 2024-03-15 02:37 | XMS_ITS | Encounter Summary ---
Author Organization [facility] Address [address] [place] [address] Care Team Providers Care Cutter Hand Name Role Phone Unavailable Primary Care Provider Unavailabl e Encounter Details Date Type Department Care Team (Latest Contact Info) Description 07/16/2007 17:24 EST Hospital Encounter [facility] - Other [address] [place] [address] Thom Kuo MD [address] [place] [address] Discharge Disposition: Home or Self Care Social [...]
--- OUTSIDE RECORDS SUMMARY | 2024-03-15 02:37 | XMS_ITS | Encounter Summary ---
Author Organization [facility] Address [address] [place] [address] Care Team Providers Care Rooter Operator Name Role Phone Unavailable Primary Care Provider Unavailabl e Encounter Details Date Type Department Care Team (Latest Contact Info) Description 11/04/2007 22:06 EDT - 11/05/2007 11:59 EDT Hospital Encounter [facility] Emergency Department - [facility] [address], [place] [id number] Emergency, MD Jaimee Discharge Disposition: Home or Self Care Social History Tobacco Use Types Packs/Day Years Used Date Smoking Tobacco: Never Assessed Sex and Gender Information Value Date Recorded Sex Assigned at Not on file Gender Identity Not on file Sexual Orientation Not on file documented as of this encounter Discharge Disposition Disposition Code Departure Means Destination Home or Self Care documented in this encounter Consult Notes * Slick Portillo MD - 11/05/2007 0000 EDT INPATIENT CONSULTATION Admission Date: 11/04/2007 Date of consultation: 11/05/2007 A consultation was requested by Dr. Salinas and I was asked to see the patient in the emergency room for evaluation of chest discomfort. PROBLEM LIST 1. Alcoholism. 2. Hypertension. HISTORY OF PRESENT ILLNESS This 52-year-old male has no known cardiac disease other than hypertension and no history of cardiac testing. He stopped drinking for 93 days but restarted at his sisters on October 19, 2007, and has been drinking since then. His chest pain began , three days ago, and came and went with emotional stress. It also seemed to get better with burping and resting. He had lots of gas. He had some tingling down his left arm. Episodes came and went lasting 20- 30 minutes. There were no other associated symptoms. He had nopalpitations, PND, orthopnea, presyncope, syncope or lower extremity edema. He also carries a diagnosis of costochondritis since age 22 but this is different. He presented to [facility] intoxicated and, due to his chest pain, was referred to the emergency room. His ER course was unremarkable. He was given aspirin and Valium. His chest pain went away and one single nitroglycerin tablet did seem to help. He was hypertensive but this resolved with Ativan and Valium. This morning on my evaluation, patient is comfortable and pain free. He does not want to be admitted and wants to go home. CARDIAC RISK FACTORS Hypertension, negative family history, unknown cholesterol, negative diabetes, intermittent smoking. PAST MEDICAL HISTORY Costochondritis as listed as above. 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 He denies any recreational drug abuse specifically cocaine or stimulants. Unfortunately, he just had to leave his homeat his wiferequest and is going to be living with friends. He states that he does have a clear place to live. FAMILY HISTORY Father had what sounds like cerebral vascular disease and coronary disease but until his mid 70s. CURRENT MEDICATIONS Metoprolol daily, unknown dose. Prilosec as needed and other antacids as needed. ALLERGIES No known drug allergies. REVIEW OF SYSTEMS Alcoholism as above. No recent trauma. No fever, chills. No seizure, stroke-like symptoms. Cardiac review of systems is detailed as above. A total of 10 systems reviewed. Pertinent positives are listed as above, other systems are negative. PHYSICAL EXAMINATION Blood pressure initially 161/103, later on repeat 123/78, heart rate 92, respirations are 18. Oxygenation 96% on room air. Neck: Carotids are +2 without bruits, no thyromegaly, no jugular venous distension. Lungs are clear in all maier. Cardiac exam: PMI is discrete and nondisplaced, normal S1, normal S2, no S3, S4. There is a soft 2/6 early systolic murmur. Abdomen is nontender. Positive bowel sounds. Lower extremities show no edema. Dorsalis pedis and posterior tibial pulses are +2. DATA REVIEWED Troponin x2 is unremarkable. CBC: WBC 5.8, hematocrit 41.2, platelets 171. INR is 1.0. CK is negative x2. Magnesium is 2.1. Blood ethanol level was 273 mg/dL. Potassium is 3.7, creatinine 0.7, BUN 8. EKG reviewed by me shows sinus tachycardia with a rate of approximately 100 and no ischemic-appearing changes. In summary, Thom Sims has chest pain of unclear etiology with some risk factors. He also has the coexisting diagnosis of alcoholism and has gone through some withdrawal here in the emergency room. I strongly recommended that Thom be admitted to the hospital for observation. We will plan on doinga stress test Tuesday. He definitely does not want to be admitted and explained that he has things he has to do. I explained in very clear terms to Thom that the risk of leaving the hospital this morning includes heart attack and . He stated back to me that he did understand this very cl early. He agreed to return to the emergency room immediately if he had any further chest discomfort. DISCHARGE MEDICATIONS Metoprolol, aspirin and a bottle of IV nitro with instructions. I have patients cell phone number ([phone]) and I will call him to set up a stress test as soon aspossible in the week. The case was discussed with Dr. Salinas. Signed by Slick oPrtillo MD 11/08/2007 08:09 Slick Portillo MD D: - Slick Portillo MD A - TIO Job ID: [id number] Document ID: [id number] cc: MD Kevin Galdamez MD documented in this encounter Plan of Treatment Not on file documented as of this encounter Visit Diagnoses Not on filedocumented in this encounter
--- OUTSIDE RECORDS SUMMARY | 2024-03-15 02:37 | XMS_ITS | Encounter Summary ---
Author Organization [facility] Address [address] [place] [address] Care Team Providers Care Proof Coin Collector Name Role Phone Unavailable Primary Care Provider Unavailabl e Encounter Details Date Type Department Care Team (Late st Contact Info) Description 11/04/2007 Results Only [facility] [address] [place] [address] Emergency, MD Jaimee Social History Tobacco Use Types Packs/Day Years Used Date Smoking Tobacco: Never Assessed Sex and Gender Information Value Date Recorded Sex Assigned at Not on file Gender Identity Not on file Sexual Orientation Not on file documented as of this encounter Plan of Treatment Not on file documented as of this encounter Procedures Procedure Name Priority Date/Time Associated Diagnosis Comments PROFILE ED CARDIAC PACK Routine 11/04/2007 23:12 EDT ETHANOL, BLOOD Routine 11/04/2007 23:12 EDT PROFILE ED CARDIAC PACK Routine 11/04/2007 22:40 EDT ETHANOL, BLOOD Routine 11/04/2007 22:40 EDT PROFILE ED CARDIAC PACK Routine 11/04/2007 22:14 EDT ETHANOL, BLOOD Routine 11/04/2007 22:14 EDT documented in this encounter Results * (ABNORMAL) ETHANOL, BLOOD (11/04/2007 23:12 EDT) Ethanol 273(H) <10 mg/dl [facility] 11/04/2007 23:1 2 EDT 11/04/2007 23:18 EDT Default Emergency MD CHEMISTRY & BLOOD G ORDERABLES [facility] [address] [place] [address] * (ABNORMAL) PROFILE ED CARDIAC PACK (11/04/2007 23:12 EDT) BUN 8(L) 10 - 26 mg/dl [facility] WBC 5.76 4.0 - 10.4 K/cmm [facility] RBC 4.35(L) 4.36 - 5.78 M/cmm [facility] Hemoglobin 14.5 13.8 - 17.3 gm/dl [facility] HCT 41.2 39.5 - 50.2 % [facility] MCV 95 81 - 95 fl [facility] MCH 33.3(H) 27.6 - 33.0 pg [facility] MCHC 35.1 32.8 - 36.4 gm/dl [facility] PLT 171 141 - 320 K/cmm [facility] RDW-CV 14.5(H) 11.8 - 14.1 % [facility] CK 222 0 - 250 U/L [facility] MB 2.6 0 - 5.0 ng/ml [facility] CK-MB Index Not calculated, normal MB. 0 - 2.5 [facility] Creatinine 0.70 0.7 - 1.5 mg/dl [facility] GFR, Calculated >60 ml/min/1. 73m2 [facility] % Neutrophils 54.5 45.5 - 79.7 % [facility] % Lymphocytes 30.9 15.0 - 46.8 % [facility] % Monocytes 12.6(H) 1.8 - 12.0 % [facility] % Eosinophils 1.2 0.6 - 6.9 % [facility] % Basophils 0.8 0.2 - 1.4 % [facility] ABS Neutrophils 3.14 2.20 - 8.85 K/cmm [facility] ABS Lymphs 1.78 1.09 - 3.30 K/cmm [facility] ABS Monocytes 0.73 0.1 - 0.8 K/cmm [facility] ABS Eosinophils 0.07 0.03 - 0.61 K/cmm [facility] ABS Basophils 0.05 0.01 - 0.11 K/cmm [facility] Type of Diff: Automated [facility] Sodium 147(H) 136 - 145 mEq/L [facility] Potassium 3.7 3.5 - 5.0 mEq/L [facility] Chloride 107 96 - 110 mEq/L [facility] CO2 25 24 - 32 mEq/L [facility] Magnesium 2.1 1.7 - 2.8 mg/dl [facility] Pro Time 13.2 12.0 - 15.0 secs [facility] I.N.R. 1.0 0.9 - 1.1 Ratio [facility] Comment: Moderate Intensity Coumadin INR = 2.0-3.0 Adjustments in anticoagulant therapy dose should be based upon the INR and NOT the Pro Time. PTT 26 20 - 35 secs [facility] Comment:Therapeutic Heparin range: 60-100 seconds Troponin I pre 2011 <0.05 ng/ml [facility] Comment: Reference Range: Normal: ??Less than 0.05 Indeterminate: ??0.05-0.80 Positive: ??Greater than 0.80 11/04/2007 23:1 2 EDT 11/04/2007 23:18 EDT Default Emergency PACKAGES & DNA PROB E ORDERABLES Performing Organization Address City/[facility] Co de Phone Number [facility] [address] [place] [address] * ETHANOL, BLOOD (11/04/2007 22:40 EDT) Ethanol Marked hemolysis Specimen unsuitable for analysis. Repeat Requested <10 mg/dl [facility] 11/04/2007 22:4 0 EDT 11/04/2007 22:49 EDT Default Emergency CHEMISTRY & BLOOD G ORDERABLES Performing Organization Address City/[facility]/ZIP Co de Phone Number [facility] [address] [place] [address] * (ABNORMAL) PROFILE ED CARDIAC PACK (11/04/2007 22:40 EDT) BUN Marked hemolysis Specimen unsuitable for analysis. Repeat Requested 10 - 26 mg/dl [facility] WBC 5.11 4.0 - 10.4 K/cmm [facility] RBC 4.41 4.36 - 5.78 M/cmm [facility] Hemoglobin 14.4 13.8 - 17.3 gm/dl [facility] HCT 41.7 39.5 - 50.2 % [facility] MCV 95 81 - 95 fl [facility] MCH 32.7 27.6 - 33.0 pg [facility] MCHC 34.6 32.8 - 36.4 gm/dl [facility] PLT 185 141 - 320 K/cmm [facility] RDW-CV 14.5(H) 11.8 - 14.1 % [facility] CK Marked hemolysis Specimen unsuitable for analysis. Repeat Requested 0 - 250 U/L [facility] MB Marked hemolysis Specimen unsuitable for analysis. Repeat Requested 0 - 5.0 ng/ml [facility] CK-MB Index Marked hemolysis Specimen unsuitable for analysis. Repeat Requested 0 - 2.5 [facility] Creatinine Marked hemolysis Specimen unsuitable for analysis. Repeat Requested 0.7 - 1.5 mg/dl [facility] GFR, Calculated Marked hemolysis Specimen unsuitable for analysis. Repeat Requested ml/min/1. 73m2 [facility] % Neutrophils 49.6 45.5 - 79.7 % [facility] % Lymphocytes 37.8 15.0 - 46.8 % [facility] % Monocytes 11.0 1.8 - 12.0 % [facility] % Eosinophils 1.0 0.6 - 6.9 % [facility] % Basophils 0.6 0.2 - 1.4 % [facility] ABS Neutrophils 2.53 2.20 - 8.85 K/cmm [facility] ABS Lymphs 1.93 1.09 - 3.30 K/cmm [facility] ABS Monocytes 0.56 0.1 - 0.8 K/cmm [facility] ABS Eosinophils 0.05 0.03 - 0.61 K/cmm [facility] ABS Basophils 0.03 0.01 - 0.11 K/cmm [facility] Type of Diff: Automated [facility] Sodium Marked hemolysis Specimen unsuitable for analysis. Repeat Requested 136 - 145 mEq/L [facility] Potassium Marked hemolysis Specimen unsuitable for analysis. Repeat Requested 3.5 - 5.0 mEq/L [facility] Chloride Marked hemolysis Specimen unsuitable for analysis. Repeat Requested 96 - 110 mEq/L [facility] CO2 Marked hemolysis Specimen unsuitable for analysis. Repeat Requested 24 - 32 mEq/L [facility] Magnesium Marked hemolysis Specimen unsuitable for analysis. Repeat Requested 1.7 - 2.8 mg/dl [facility] Troponin I pre 2012 Marked hemolysis Specimen unsuitable for analysis. Repeat Requested ng/ml [facility] 11/04/2007 22:4 0 EDT 11/04/2007 22:49 EDT Default Emergency MD PACKAGES & DNA PROB E ORDERABLES Performing Organization Address [facility] de Phone Number [facility] [address] [place] [address] * ETHANOL, BLOOD (11/04/2007 22:14 EDT) Ethanol Marked hemolysis <10 mg/dl [facility] 11/04/2007 22:1 4 EDT 11/04/2007 22:23 EDT Default Emergency MD CHEMISTRY & BLOOD G ORDERABLES Performing Organization Address [facility] Co de Phone Number [facility] [address] [place] [address] * PROFILE ED CARDIAC PACK (11/04/2007 22:14 EDT) BUN Marked hemolysis Specimen unsuitable for analysis. Repeat Requested 10 - 26 mg/dl [facility] CK Marked hemolysis Specimen unsuitable for analysis. Repeat Requested 0 - 250 U/L [facility] MB Marked hemolysis Specimen unsuitable for analysis. Repeat Requested 0 - 5.0 ng/ml [facility] CK-MB Index Marked hemolysis Specimen unsuitable for analysis. Repeat Requested 0 - 2.5 [facility] Creatinine Marked hemolysis 0.7 - 1.5 mg/dl [facility] GFR, Calculated Marked hemolysis ml/min/1. 73m2 [facility] Sodium Marked hemolysis Specimen unsuitable for analysis. Repeat Requested 136 - 145 mEq/L [facility] Potassium Marked hemolysis Specimen unsuitable for analysis. Repeat Requested 3.5 - 5.0 mEq/L [facility] Chloride Marked hemolysis Specimen unsuitable for analysis. Repeat Requested 96 - 110 mEq/L [facility] CO2 Marked hemolysis Specimen unsuitable for analysis. Repeat Requested 24 - 32 mEq/L [facility] Magnesium Marked hemolysis Specimen unsuitable for analysis. Repeat Requested 1.7 - 2.8 mg/dl [facility] Troponin I pre 2012 Marked hemolysis Specimen unsuitable for analysis. Repeat Requested ng/ml [facility] 11/04/2007 22:1 4 EDT 11/04/2007 22:23 EDT Default Emergency MD PACKAGES & DNA PROB E ORDERABLES [facility] [address] [place] [address] documented in this encounter Visit Diagnoses Not on filedocumented in this encounter
--- OUTSIDE RECORDS SUMMARY | 2024-03-15 02:37 | XMS_ITS | Encounter Summary ---
Author Organization [facility] Address [address] [place] [address] Care Team Providers Care Agriculture Intern Name Role Phone Unavailable Primary Care Provider Unavailabl e Encounter Details Date Type Department Care Team (Late st Contact Info) Description 11/22/2002 Results Only [facility] Medicine [facility] [address], [place] [id number] Kevin Chery MD [address] [place] [address] Social History Tobacco Use Types [...] Associated Diagnosis Comments COMPLETE BLOOD COUNT Routine 11/22/2002 14:20 EDT COMPREHENSIVE METABOLIC PANEL (CMP) Routine 11/22/2002 14:20 EDT documented in this encounter Results * (ABNORMAL) COMPREHENSIVE METABOLIC PANEL (CMP) (11/22/2002 14:20 EDT) Potassium 4.3 3.5 - 5.0 mEq/L [facility] Sodium 140 136 - 145 mEq/L [facility] Chloride 103 96 - 110 mEq/L [facility] CO2 26 24 - 30 mEq/L [facility] Total Alkaline Phosphatase 98 38 - 126 U/L [facility] Bilirubin, Total 0.3 0.2 - 1.3 mg/dl [facility] AST 55(H) 8 - 50 U/L [facility] ALT 88(H) 15 - 75 U/L [facility] Albumin 4.7 3.0 - 5.5 g/dl [facility] Total Protein 7.5 6.0 - 8.5 g/dl [facility] Creatinine 1.0 0.7 - 1.5 mg/dl [facility] BUN 14 10 - 26 mg/dl [facility] Calcium 9.5 8.5 - 10.5 mg/dl [facility] Calculated Calcium 9.2 8.5 - 10.5 mg/dl [facility] Glucose, Serum 94 70 - 110 mg/dl [facility] Albumin/Globulin Ratio 1.7 [facility] 11/22/2002 14:2 0 EDT 11/22/2002 19:08 EDT Kevin Chery MD CHEMISTRY & BLO OD GAS ORDERABLES [facility] [address] [place] [address] * (ABNORMAL) HEMAGRAM (11/22/2002 14:20 EDT) WBC 7.46 4.0 - 10.4 K/cmm [facility] RBC 4.45 4.36 - 5.78 M/cmm [facility] Hemoglobin 15.5 13.8 - 17.3 gm/dl [facility] HCT 43.9 39.5 - 50.2 % [facility] MCV 99(H) 81 - 95 fl [facility] MCH 34.8(H) 27.6 - 33.0 pg [facility] MCHC 35.2 32.8 - 36.4 gm/dl [facility] PLT 187 141 - 320 K/cmm [facility] RDW-CV 12.5 11.8 - 14.1 % [facility] 11/22/2002 14:2 0 EDT 11/22/2002 19:08 EDT Kevin Chery MD HEMATOLOGY & PF 4 ORDERABLES Performing Organization Address City/State/[facility] Co de Phone Number [facility] [address] [place] [address] documented in this encounter Visit Diagnoses Not on filedocumented in this encounter
--- OUTSIDE RECORDS SUMMARY | 2024-03-15 02:37 | XMS_ITS | Encounter Summary ---
Author Organization [facility] Address [address] [place] [address] Care Team Providers Care Artistic Associate Name Role Phone Unavailable Primary Care Provider Unavailabl e Encounter Details Date Type Department Care Team (Late st Contact Info) Description 10/29/2007 Office Visit [facility] [address], [place] [id number] Junito Magana MD [address] [facility], [address] [place] [address] Social History Tobacco Use Types Packs/Day Years Used Date Smoking Tobacco: Never Assessed Sex and Gender Information Value Date Recorded Sex Assigned at Not on file Gender Identity Not on file Sexual Orientation Not on file documented as of this encounter Progress Notes * Junito Magana MD - 09/19/2009 1051 EST Department - Physician Summary Registration Date/Time: 10/29/2007 22:15 Time Seen: 22:36 Oct 29 2007. Arrived- Police present. HISTORY OF PRESENT ILLNESS Chief Complaint: CHEST PAIN. This started today and is still present. It was gradual in onset. Onset during light activity (Pt was at [facility], was uncooperative and sent to [facility],en-route began c/o chest pain and came to ED for eval, admits to heavy binge drinking for last 6 days, was dropped off at [facility] yesterday by sister). It is described as sharp and it is described as located in the central chest area. At its maximum, severity described as mild. When seen in the E.D.,it was gone. Modifying factors- Not worsened by anything. Not relieved by anything. Pt has the shakes. No nausea, vomiting, difficulty breathing or diaphoresis. The patient has had similar symptoms previously. Not recently seen/assessed. REVIEW OF SYSTEMS No fever, chills, pedal edema, calf pain or fainting episodes. No headache, sore throat, blurred vision, abdominal pain or black stools. No difficulty with urination, skin rash or bloody stools. PAST HISTORY See nurses notes. Hypertension. Medications: The patient's medications have been reviewed. Allergies: The patient's allergies have been reviewed. SOCIAL HISTORY Alcohol use. Patient is alcoholic. ADDITIONAL NOTES The nursing notes have been reviewed. PHYSICAL EXAM Appearance: Alert. Oriented X3. No acute distress. Vital Signs: Have been reviewed- hypertensive; tachycardic; oxygen saturation normal. Eyes: Pupils equal, round and reactive to light. No scleral icterus. ENT: Pharynx normal. Neck: Neck supple. CVS: Normal heart rate and rhythm. Heart sounds normal. Respiratory: No respiratory distress. Breath sounds normal. Abdomen: Abdomen soft and nontender. Skin: Skin warm and dry. Extremities: No calf tenderness. No lower extremity edema. Neuro: Oriented X 3. No motor deficit. LABS, X-RAYS, AND EKG CBC: CBC is normal. Chemistries: Normal. Drug Levels: Ethanol level 205 @ 0005. Cardiac Labs: Troponin I within normal limits. PROGRESS ANDPROCEDURES E.D. Course: Pt appears to be in alcohol withdrawal > Banana bag, Ativan EKG no acute changes, ST Trop neg Discussed with [facility], will re-evaluate after tx in ED 00:42. Symptoms much better. . Disposition: Condition: improved. Discharged home (to [facility]). CLINICAL IMPRESSION Chest pain (Resolved). Alcohol withdrawal. Clinical picture does not suggest myocardial infarction. INSTRUCTIONS Warnings: GENERAL WARNINGS: Return to the Emergency Department or contact your physician immediately if your condition worsens or changes unexpectedly, if not improving as expected, or if other problems arise. Your Current Medications: Your current home medications have been reviewed. No changes in your current home medications are recommended at this time. Continue taking the following medications: Allopurinol: 100mg daily. Metoprolol: 25mg daily. Prescription Medications: Valium 10 mg: take 1 orally every 4 hours as needed (per [facility] protocol, Rx to be filled by [facility] staff only). Follow-up: NOEMI GABRIEL MD, [facility], , [facility], [address] [facility], [place], [address]. Follow up in about three days. Call for an appointment. (Electronically signed by Junito Magana MD 10/30/2007 0:45) Department - Nursing Summary Registration Date/Time: 10/29/2007 22:15 TRIAGE Initial Assessment Triage time 22:16 Oct 29 2007. Acuity: LEVEL 2. Alert. No acute distress. --2218 Bright Sutherland R.N. BP: 177 / 99. HR: 115. RR: 24. O2 saturation: 99 % room air. --2226 Misty CalvoMKelsey. Medications Allopurinol: 100mg daily. Metoprolol: 25mg daily. --2218 Bright Sutherland R.N.. Allergies No known drug allergies. --2218 Bright Sutherland R.N.. History Chief Complaint: CHEST DISCOMFORT. Onset (about 4 days ago). Pain level now: 04/10. Treatment HAM STRIPPER: None. PAST HX: Hypertension. Gout. No infectious disease exposure. No history of previous surgery. SOCIAL HX: Cigarette smoker: less than 1 pack per day. Heavy alcohol use. Patient smells of ETOH inthe emergency department. No drug use. Functional assessment performed: wears glasses. No report ofabuse. Arrived by private vehicle and walking from a detox center (pt c/o of CP OTW to [facility]) and accompanied by police. Historian: patient. --2218 Bright Sutherland R.N.. Interventions CHEST PAIN protocol initiated. --2218 Bright Sutherland R.N.. PHYSICAL ASSESSMENT Ambulatory to room. (pt in cuffs). Alert. Appears in no acute distress. Appears anxious. Mood/affect abnormal (restless, manic and bizarre). Respirations not labored. --2221 Bright Sutherland R.N.. NURSING PROGRESS NOTES Blood samples drawn from the left antecubital space with 19g butterfly by tech per protocol and sent to lab: bhavani dietz. --2303 Jennifer Calvo late entry -. Patient identifiers checked. hall monitor, pulse oximeter and NIBP monitor placed on patient; court monitor- Lead II; monitor alarms on. Patient gowned. Head of bed elevated. Call light placed in reach. Side rails up x 2. Bed placed in lowest position. Brakes of bed on. --2323 Cassidy Penn R.N. BP: 163 / 91. HR: 105. RR: 18. --2324 Cassidy Penn R.N. Blood samples drawn from the left forearm with syringe by nurse per protocol and sent to lab: juju coates. --12 Pepper Guido R.N. ATIVAN 2mg diluted with IV fluid slow IVP. IV patency established. IV site checked: no pain, redness, or swelling. IV flushed thoroughly pre- and post- medication administration. Sedative drug warninggiven to the patient. . --002 Cassidy Penn R.N. (Lights dimmed. [place] to pt). --003 Cassidy Penn R.N. (States tremors are better). Reassessment after medication administered. Overall patient status- the patient states feels better. --005 Cassidy Penn R.N. ATIVAN 1mg diluted with sterile water slow IVP. IV patency established. IV site checked: no pain, redness, or swelling. IV flushed thoroughly pre- and post- medication administration. Sedative drug warning given to the patient. . --0051 Cassidy Penn R.N. Care transferred and report received. --0106 Pepper Guido R.N. (awaiting IVF to complete infusion then will d/c to PD custody. ). The patient is sleeping. --0117 Pepper Guido R.N. VALIUM 5 mg x 12 tabs, SP # [id number], sealed in envelope for [facility] PO. Sedative drug warning given to the patient. . --0140 Pepper Guido R.N. (Pt wandering outside room, asking for BR, pt asked to return to room and urinal provided. [facility] for transport. Security called to stand-by so that pt does not flee prior to [employer] arriving. ). --0148 Pepper Guido R.N. (I called [facility] to inform them that pt would be returning, staff states that pt will not be able tocome back there d/t him being uncooperative w/ staff and not following their rules. ). --0209 Pepper Guido R.N. ([facility] arrived to ER for transport, they are aware that [facility] will not accept pt, [facility] refusing ValiumSP and Rx for [facility], SP returned to [facility]. Pt d/c'd w/ d/c paperwork. ). --0210 Pepper Guido R.N.. IV / I&O Flowsheet IV Site #1. IV access: left forearm. IV started in ED with 20g angiocath using aseptictechnique, with good blood return; one attempt. Saline lock placed and flushed with 5 mL normal saline. --0013 Pepper Guido R.N. IV fluids started. IV bag #1 of 1000 mL D5 NS with 1 mg Folate, 100 mg Thiamine and 2 amps Multivitamins; rate = 200 mL/hr. --0022 Cassidy Penn R.N.. DISPOSITION / DISCHARGE BP: 152 / 90. HR: 117. RR: 16. O2 saturation: 98% room air. IV site discontinued, catheter intact. Condition at departure: improved and stable. Patient reports pain level on departure as 0/10. --0145Bbrigida Guido R.N. No learning barriers present. Discharge instructions reviewed with the patient and (police). Reviewed referrals. Written instructions provided in [place]. The patient was discharged to police department facility and accompanied by a police escort. The patient left the Emergency Department ambulatory and via police department vehicle. --021 Pepper Guido R.N.. Jennifer Cho R.N., R.N., R.N. Locked/Released at 10/30/2007 2:11 by Pepper Guido R.N. documented in this encounter Plan of Treatment Not on file documented as of this encounter Visit Diagnoses Not on filedocumented in this encounter
--- OUTSIDE RECORDS SUMMARY | 2024-03-15 02:37 | XMS_ITS | Encounter Summary ---
Author Organization [facility] Address [address] [place] [address] Care Team Providers Care Clamp Carrier Operator Name Role Phone Unknown, Provider Primary Care Provider [phone] Encounter Details Date Type Department Care Team (Late st Contact Info) Description 07/08/2020 Lab Requisition [facility] Pathology & Laboratory Medicine - [facility] [address] [place] [address] Outr Resulting Lab, Provider Social History Tobacco [...] Procedure Name Priority Date/Time Associated Diagnosis Comments DO NOT ORDER STANDALONE - [facility] COVID TEST Today 07/07/2020 13:16 EST COVID-19 TESTING Routine 07/07/2020 13:1 6 EST documented in this encounter Results * DO NOT ORDER STANDALONE - [facility] COVID TEST (07/07/2020 13:16 EST) COVID-19 rt-PCR Result NEGATIVE Negative 07/11/2020 15:45 EST [facility] Comment: 2019-novel Coronavirus (2019-nCoV) not detected by the qRT-PCR assay. Consider testing for other respiratory viruses or re-collecting for 2019-nCoV testing. Note: Optimum timing for peak viral levels during infections caused by 2019-nCoV have not been determined. Collection of multiple specimens from the same patient may be necessary to detect the virus. Limitations Positive results are indicative of active infection with SARS-CoV-2 but do not rule out bacterial infection or co-infection with other viruses. The agent detected may not be the definite cause of disease. In addition, detection of viral RNA may not indicate the presence of infectious virus or that SARS-CoV-2 is the causative agent for clinical symptoms. Negative results do not preclude SARS-CoV-2 infection and should not be used as the sole basis for patient management decisions. Negative results must be combined with clinical observations, patient history, and epidemiological information. False negative results may also occur if amplification inhibitors are present in the specimen or if inadequate numbers of organisms are present in the specimen. Optimum specimen types and timing for peak viral levels during infections caused by SARS-CoV-2 have not been fully determined. Collection of multiple specimens (types and time points) from the same patient may be necessary to detect the virus. The test was validated for use with upper respiratory specimens obtained via nasopharyngeal or oropharyngeal swabs in VTM, UTM, M4, M5, M6, saline, and MTM media. The performance of this test has not been established for other specimens. Specimens collected using other FDA recommended Specimen Collection Materials listed in the FDA COVID-19 Diagnostic Technologies communication (October 25, 2019) are processed with the caveat that they were not all validated for use with this test and the result must be interpreted in this context. Furthermore, a false negative results may occur if a specimen is improperly collected, transported or handled. If the virus mutates in the RT-PCR target region, SARS-CoV-2 may not be detected or may be detected less predictably. Inhibitors or other types of interference may produce a false negative result. An interference study evaluating the effect of common cold medications was not performed. This test is not FDA-cleared but its performance characteristics were established by our CLIA-certified, CAP-accredited, high complexity laboratory in accordance with CLIA regulations, [employer] (CAP) guidelines (Oct 18, 2019), and FDA guidance (Sep 29, 2019). This test is only for use under the Food and Drug Administration's Emergency Use Authorization. Swab ENTIRE NASOPHARYNX / Unknown 07/07/2020 13:16 EST 07/08/2020 18:20 EST Provider Outr Resulting Lab MICROBIOLOGY - GENERAL ORDERABLES [facility] [place], [place] * COVID-19 TESTING (07/07/2020 13:16 EST) COVID-19 rt-PCR Result NEGATIVE Negative 07/11/2020 19:12 EST [facility] Comment: 2019-novel Coronavirus (2019-nCoV) not detected by the qRT-PCR assay. Consider testing for other respiratory viruses or re-collecting for 2019-nCoV testing. Note: Optimum timing for peak viral levels during infections caused by 2019-nCoV have not been determined. Collection of multiple specimens from the same patient may be necessary to detect the virus. Limitations Positive results are indicative of active infection with SARS-CoV-2 but do not rule out bacterial infection or co-infection with other viruses. The agent detected may not be the definite cause of disease. In addition, detection of viral RNA may not indicate the presence of infectious virus or that SARS-CoV-2 is the causative agent for clinical symptoms. Negative results do not preclude SARS-CoV-2 infection and should not be used as the sole basis for patient management decisions. Negative results must be combined with clinical observations, patient history, and epidemiological information. False negative results may also occur if amplification inhibitors are present in the specimen or if inadequate numbers of organisms are present in the specimen. Optimum specimen types and timing for peak viral levels during infections caused by SARS-CoV-2 have not been fully determined. Collection of multiple specimens (types and time points) from the same patient may be necessary to detect the virus. The test was validated for use with upper respiratory specimens obtained via nasopharyngeal or oropharyngeal swabs in VTM, UTM, M4, M5, M6, saline, and MTM media. The performance of this test has not been established for other specimens. Specimens collected using other FDA recommended Specimen Collection Materials listed in the FDA COVID-19 [employer] communication (October 25, 2019) are processed with the caveat that they were not all validated for use with this test and the result must be interpreted in this context. Furthermore, a false negative results may occur if a specimen is improperly collected, transported or handled. If the virus mutates in the RT-PCR target region, SARS-CoV-2 may not be detected or may be detected less predictably. Inhibitors or other types of interference may produce a false negative result. An interference study evaluating the effect of common cold medications was not performed. This test is not FDA-cleared but its performance characteristics were established by our CLIA-certified, CAP-accredited, high complexity laboratory in accordance with CLIA regulations, [employer] (CAP) guidelines (Oct 18, 2019), and FDA guidance (Sep 29, 2019). This test is only for use under the Food and Drug Administration's Emergency Use Authorization. Performing Lab [facility] 07/11/2020 19:12 EST [facility] Swab 07/07/2020 13:1 6 EST 07/08/2020 18:20 EST Provider Outr Resulting Lab MICROBIOLOGY - GENERAL ORDERABLES [facility] [address] [place] [id number] [facility] [place], [place] documented in this encounter Visit Diagnoses Not on filedocumented in this encounter Care Teams Clamp Carrier Operator Relationship Specialty Start Date End Date Unknown, Provider, PCP - General 11/27/15 documented as of this encounter
--- OUTSIDE RECORDS SUMMARY | 2024-03-15 02:37 | XMS_ITS | Encounter Summary ---
Author Organization [facility] Address [address] [place] [address] Care Team Providers Care Gunstock Repairer Name Role Phone Unknown, Provider Primary Care Provider [phone] Encounter Details Date Type Department Care Team (Late st Contact Info) Description 02/11/2021 Lab Requisition [facility] Pathology & Laboratory Medicine - [facility] [address], [place] [id number] Outr Resulting Lab, Provider Social History Tobacco [...] Date/Time Associated Diagnosis Comments LYME AB Routine 02/10/2021 15:19 EDT HEPATITIS C AB W REFLEX TO HCV RNA BY PCR Routine 02/10/2021 15:19 EDT PSA TOTAL, DIAGNOSTIC Routine 02/10/2021 15:19 EDT documented in this encounter Results * PSA TOTAL, DIAGNOSTIC (02/10/2021 15:19 EDT) PSA 0.8 0.0 - 4.5 ng/mL 02/11/2021 16:38 EDT [facility] Blood VENOUS BLOOD / Unknown 02/10/2021 15:19 EDT 02/11/2021 15:28 EDT Narrative [facility] - 02/11/2021 16:38 EDT NOTE: Serum PSA concentration should not be interpreted as absolute evidence for the presence or absence of malignant disease. Assayed on Siemens [employer] XPT using chemiluminescent technology.??Values obtained by using different assay methods cannot be used interchangeably. Provider Outr Resulting Lab CHEMISTRY & BLOOD GAS ORDERABLES Performing Organization Address City/[facility] [place]/ZIP Co de Phone Number [facility] [address] [place] [address] * HEPATITIS C AB W REFLEX TO HCV RNA BY PCR (02/10/2021 15:19 EDT) Hep C Antibody Negative Negative 02/12/2021 10:23 EDT [facility] Blood VENOUS BLOOD / Unknown 02/10/2021 15:19 EDT 02/11/2021 15:28 EDT Provider Outr Resulting Lab CHEMISTRY & BLOOD GAS ORDERABLES Performing Organization Address [facility] [place]/[facility] Co de Phone Number [facility] [address] [place] [address] * LYME AB (02/10/2021 15:19 EDT) Lyme Ab Negative Negative 02/12/2021 10:18 EDT [facility] Comment:New 3rd generation a ssay in use 01/09/2020 Blood VENOUS BLOOD / Unknown 02/10/2021 15:19 EDT 02/11/2021 15:28 EDT Provider Outr Resulting Lab IMMUNOLOGY A ND SEROLOGY ORDERABLES Performing Organization Address [facility] [place]/[facility] Co de Phone Number [facility] [address] [place] [address] documented in this encounter Visit Diagnoses Not on filedocumented in this encounter Care Teams Gunstock Repairer Relationship Specialty Start Date End Date Unknown, Provider, PCP - General 11/27/15 documented as of this encounter
--- OUTSIDE RECORDS SUMMARY | 2024-03-15 02:37 | XMS_ITS | Clinical Summary ---
Author Organization [facility] [place] [address] Care Team Providers Care Divine Healer Name Role Phone None Primary Care Provider Unavailabl e Social History Tobacco Use Types Packs/Day Years Used Date Smoking Tobacco: Never Assessed Sex and Gender Information Value Date Recorded Sex Assigned at Not on file Gender Identity Not on file Sexual Orientation Not on file Plan of Treatment Health Maintenance Due Date Last Done Comments CT Colonography 1957 Colonoscopy 1957 Colorectal Cancer Screening 1957 FIT DNA 1957 FIT 1957 Sigmoidoscopy (10 year) with FIT yearly 1957 Sigmoidoscopy 1957 Hepatitis C Screening 1975 Lipid Screening 1975 Tdap adult 1976 Tetanus vaccine 1976 Zoster vaccine (1 of 2) 2007 Advance Directive 2012 Pneumoccocal Vaccine: 65+ (1 of 1 - PCV) 2022 Covid-19 Vaccine ( - season) 2023 Influenza (Flu) vaccine (1 o f 1 - Influenza standard series) 04/01/2024 Care Teams Divine Healer Relationship Specialty Start Date End Date None None PCP - General 11/25/21
--- OUTSIDE RECORDS SUMMARY | 2024-03-15 02:37 | XMS_ITS | Encounter Summary ---
Author Organization [facility] Address [address] [place] [address] Care Team Providers Care Otorhinolaryngologist Name Role Phone Unavailable Primary Care Provider Unavailabl e Encounter Details Date Type Department Care Team (Late st Contact Info) Description 01/14/2000 16:11 EDT Hospital Encounter [facility] - [address] [id number] Yonathan Romero Social History Tobacco Use Types Packs/Day Years [...]
--- OUTSIDE RECORDS SUMMARY | 2024-03-15 02:37 | XMS_ITS | Encounter Summary ---
Author Organization [facility] Address [address] [place] [address] Care Team Providers Care Credentials Specialist Name Role Phone Unavailable Primary Care Provider Unavailabl e Encounter Details Date Type Department Care Team (Late st Contact Info) Description 11/04/2007 Office Visit [facility] - Maple conversion [address], [place] [id number] Kevin Ramirez MD [address] [facility], [place] [facility] [address] [place] [address] Social History Tobacco Use Types Packs/Day Years Used Date Smoking Tobacco: Never Assessed Sex and Gender Information Value Date Recorded Sex Assigned at Not on file Gender Identity Not on file Sexual Orientation Not on file documented as of this encounter Progress Notes * Kevin Ramirez IV, MD - 09/19/2009 1022 EST Department - Physician Summary Registration Date/Time: 11/04/2007 22:03 Time Seen; upon arrival. Arrived- By private vehicle. Historian- patient. HISTORY OF PRESENT ILLNESS Chief Complaint: CHEST PAIN. EtOH w/d sx. This started today and is still present. It has been waxing/waning. 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 States has been drinking and feels like he is withdrawing. States that is having chest pressure and is not sure if sx are just EtOH related or not. Seen previously for same sx, enzymes neg and d/c'ed to home. ). It is described as located in the central chest area and right arm and radiating to the right shoulder. At its maximum, severity described as mild. When seen in the E.D., severity described as mild. Modifying factors- Not worsened by anything. Not relieved by anything. He has had mild difficulty breathing and nausea. No vomiting or diaphoresis. Patient has not had similar symptoms previously. Not recently seen/assessed. OF SYSTEMS No fever, chills, cough, pedal edema or calf pain. All systems otherwise negative, except as recorded above. PASTHISTORY See nurses notes. Medications: The patient's medications have been reviewed. Allergies: The patient's allergies have been reviewed. SOCIAL HISTORY Nonsmoker. FAMILY HISTORY Negative. ADDITIONAL NOTES The nursing notes have been reviewed. PHYSICAL EXAM Appearance: Alert. Oriented X3. No acute distress. Vital Signs: Have been reviewed. Eyes: Pupils equal, round and reactive to light. ENT: Pharynx normal. Neck: Neck supple. CVS: Normal heart rate and rhythm. Respiratory: No respiratory distress. Breath sounds normal. Abdomen: Abdomen soft and nontender. Skin: Normal skin color and turgor. Skin warm and dry. No rash. Extremities: Extremities exhibit normal ROM. No lower extremity edema. Neuro: Oriented X 3. LABS, X-RAYS, AND EKG CBC: CBC is normal. Chemistries: Normal. Drug Levels: Ethanol level- legally intoxicated. Cardiac Labs: Cardiac labs are normal. Pulse Oximetry: O2 saturation- 100% (FIO2 - room air). Interpretation: normal. PROGRESS AND PROCEDURES E.D. Course: Pt presents with squeezing chest pain. Possible related to relative tachycardia with EtOH w/d. Pain likely related to EtOH gastritis/reflux/anxiety or other benign cause. However, given repeat visits, age, hx, will rule out with serial enzymes in ED. First set neg. Please see dispo note by Rita for further details.. Ativan given IVP. Metoprolol given IVP. ASA given PO. Valium given IVP. Patient/family counseled. Old medical records ordered. Disposition: Discharged home. CLINICAL IMPRESSION Chest pain. Alcohol intoxication. Alcohol withdrawal. (Electronically signed by Danny Ramirez MD 11/06/2007 1:10) PROGRESS AND PROCEDURES E.D. Course: 05:57. CK 222--> 202. \Bryantt[place] reports that the pt has refused admission and is asking to go home, that he has discussed risks of undiagnosed ACS, and that he will ensure fu for some provocative testing this week Th ept is up and dressed when I go back in, feels well enough and is refusing ACT1. Given a THP of ativan. Discussed case with physician Dr. Portillo. Physician will see patient in ED. Old medical records reviewed. Disposition: Discharged home. Discharged home in fair condition and improved condition. CLINICAL IMPRESSION Precordial chest pain. 12 lead EKG performed (The insert operator felt that you needed to be further evaluated, but you decided to work on this on an outpatient basis). Alcohol withdrawal. INSTRUCTIONS No strenuous activity until better. (Labs are all normal today). Prescription Medications: Diazepam 5 mg: take 1-2 orally every 6 hours as needed for anxiety. Dispense fifteen (15). No refill (To be dispensed only by act 1). OTC Medications: Aspirin 81 mg (available over the counter): take 1 orally every 24 hours. Maximum Strength Maalox Liquid (Available over the counter): take according to label instructions. Follow-up: Return to the emergency department for return of chest pain, vomitng, sweaty skin, other concerns. Follow up with your doctor early next week. Follow-up: OLEGARIO PORTILLO MD, Cardiology, , [address] [place] [address]. follow up this week for the stress test. (Electronically signed by Jigar Salinas M.D. 11/06/2007 10:26) PROGRESS AND PROCEDURES E.D. Course: I rewrote thedischarge instructions for cardiology but did not see the patient.. CLINICAL IMPRESSION Atypical chest pain. 12 lead EKG performed. Alcohol withdrawal. INSTRUCTIONS (The Mail Handler Sorter felt that you needed to be further evaluated in the hospital but you decided to have this worked up as an outpatient.). Prescription Medications: Nitroglycerin 0.4 mg: dissolve 1 under tongue every 5 minutes as needed for chest pain. Dispense 100. No refills. Generic substitute OK. Follow-up: OLEGARIO PORTILLO MD, Cardiology, , [address] [place] [address]. Follow up. Call for the next available appointment. (Electronically signed by Kedar Capellan M.D. 11/05/2007 11:21) Department - Nursing Summary Registration Date/Time: 11/04/2007 22:03 TRIAGE Initial Assessment Triage time 22:10 Nov 04 2007. Acuity: LEVEL 3. BP: 161/103. HR: 105. RR: 18. Temp: 37.4 C (oral). O2 saturation: 100% room air. Alert. --2219 Roberta Chavez R.N.. Medications Metoprolol: daily. --2219 Roberta Chavez R.N.. Allergies No known drug allergies. --2219 Roberta Chavez R.N.. History Chief Complaint: CHEST PAIN and (right arm numbness). This started today. Pain level now: 10/10. 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 PAST HX: Hypertension. No history of previous surgery. SOCIAL HX: Occasional cigarette smoker. Alcohol use (sober until 3 months ago, started drinking yesterday- admit to detox w/ ETOH 316 @ 1815.). The nutritional risk assessment revealed no deficiencies. No report of abuse. Arrived by EMS. Historian: patient and EMS. --2219 Roberta Chavez R.N.. NURSING PROGRESS NOTES (Tech in room for redraw.). --2245 Bill Castillo R.N. Blood samples drawn from the left antecubital space with syringe by tech per protocol and sent to lab: green, purple, blue and tiger top. 5 mL blood drawn and discarded. Line flushed post blood draw with 10 mL normal saline. --2251 Kendra Ruth, E.M.T. Blood samples drawn from the right antecubital space with 21g butterfly by tech per protocol and sent to lab: green, purple, blue and tiger top. --2316 Jeronimo Rae, E.M.T. BP: 153 / 91. HR: 108. RR: 16. (Assumed care at this time. Patient is shaky at this time and requesting something to help him sleep). The patient is calm. Patient reports current pain level as 0/10. --2322 Sheeba Leon R.N. Two patient identifiers checked. (On cardiac, BP, and pulseox monitoring.). The patient is calm andresting quietly. --2326 Bill Castillo R.N. VALIUM 10 mg PO. Sedative drug warning given to the patient. . --2326 Bill Castillo R.N. BP: 123 / 58. HR: 106. O2 saturation: 95 % room air. The patient is calm and resting quietly. --2348 Bill Castillo R.N. BP: 123 / 71. HR: 107. The patient is resting quietly. --17 Sheeba Leon R.N. (mdPt removed his IV and called for assistance when he was unable to staunch the bleeding. Pressuredressing applied to site. ). --48 Bill Castillo R.N. (Dr. Ramirezback in to see patient Patient states,I'm feeling alot better.). --005 Sheeba Leon R.N. ASA 325 mg given at 0115 PO. . --012 Sheeba Leon R.N. GI COCKTAIL composed of 10 mL viscous lidocaine and 20 mL antacid given at 0120 PO. . --012 Sheeba Leon R.N. METOPROLOL 5 mg diluted with IV fluid slow IVP over 10 minutes. IV patency established. Site checked: no pain, redness, or swelling. Flushed thoroughly pre- and post-medication administration. . --012 Sheeba Leon R.N. BP: 149 / 94. HR: 99. RR: 16. --012 Sheeba Leon R.N. (Shakes 8 out of 10). --013 Sheeba Leon R.N. LORAZEPAM 2mg diluted with IV fluid slow IVP over 2 minutes. IV patency established. Site checked: no pain, redness, or swelling. Flushed thoroughly pre- and post-medication administration. Sedative drug warning given to the patient. . --133 Sheeba Leon R.N. Two patient identifiers checked. BP: 138 / 90. HR: 84.RR: 16. O2 saturation: 98 % room air. Patientreports current pain level as 0/10. Call light placed in reach. Side rails up x 2. Bed placed in lowest position. Brakes of bed on. --0144 Gonzalez RootN. BP: 123 / 78. HR: 92 NSR. RR:18. O2 saturation: 96 % room air. (Patient is not shaky at this time. ). The patient reports no complaints and the patient is resting quietly. --0223 Sheeba Leon R.N. Pt. c/o being shaky.. ATIVAN 2mg diluted with IV fluid slow IVP. IV patency established. IV site checked: no pain, redness, or swelling. IV flushed thoroughly pre- and post-medication administration. Sedative drug warning given to the patient. . --0256 Gonzalez CasillasNAnastacio BP: 102 / 60. HR: 80. RR: 18. O2 saturation: 96 % room air. (IV # 3 infusing). The patient is sleeping. --0317 Charmaine Root.N. BP: 110 / 70. HR: 90. RR: 16. O2 saturation: 96 % room air. The patient is sleeping. --0355 Gonzalez RootNAnastacio (Crisis is here to see patient). --0438 Sheeba Leon R.N. correction to prior entry -Charted on the wrong chart. --0439 Gonzalez RootN. Blood samples drawn from the right antecubital space peripheral IV site with 18g by nurse per protocol and sent to lab: marcella dietz. 5 mL blood drawn and discarded. Line flushed post blood draw with 10 mL normal saline. --0514 Sheeba Leon R.N. (No longer shaky). --0514 Gonzalez RootN. BP: 114 / 60. HR: 86 (regular and normal rate). RR: 16. The patient is sleeping. Patient reports current pain level as 0/10. --0538 Gonzalez RootN. BP: 127/76. HR: 102. RR: 14. O2 saturation: 96 % room air. The patient reports no complaints. --0644 Brittany Clark R.N. (Dr. Salinas in to speak with patient). --0647 Sheeba Leon R.N. Temp: 36.9 oral. Patient reports current pain level as 0/10. --0648 Sheeba Leon R.N. (Care transferred at this time.). --0710 Sheeba Leon R.N. BP: 120 / 67. HR: 80. RR: 20. Cardiac rhythm: normal sinus rhythm. (Assumed care of pt- pt waiting to see Cards for consult. Sleeping at this time.). --0723 Kusum Duque R.N. (Pt awake, inquiring about length of stay-informed that he's waiting for cardiology. Gingerale provided.). --0744 Kusum Duque R.N. (Dr. Portillo from [facility] here for Cardiology consult). --0750 Ezequiel Bermudez R.N. BP: 141 / 97. HR: 83. RR: 18. Cardiac rhythm: normalsinus rhythm. --0809 Kusum Duque R.N. BP: 151 / 95. PEPCID 20 mg PO. . --0819 Kusum Duque R.N. (HAYDEE 0.033). --0820 Kusum Duque R.N. (Spoke w/ [facility]- re: pt belongings. State they have none. ). --0822 Kusum Duque R.N. (LORAZAPAM 1MG #4 TO GO). --0828 Kusum Duque R.N. NITROGLYCERIN 0.4 mg BOTTLE OF [address] PORTILLO/CARDIOLOGY SL. . --0832 Kusum Duque R.N. (*Spoke w/ [employer] dispatcher- if pt belongings are at dept they are unable to be retrieved until Mon am. Pt made aware ([facility] stated sweatshirt/any belongings left w/ pt in ED night before)-). --0871 Kusum Duque R.N.. IV / I&O Flowsheet IV access: left antecubital space. IV started prior to arrival by EMS: 18g angiocath. --2220 Roberta Chavez R.N. Blood samples drawn from the left antecubital space peripheral IV site with syringe and sent to lab: juju coates. 10 mL blood drawn and discarded. Line flushed post blood draw with 5 mL normal saline. --2226 Bill Castillo R.N. IV access: right antecubital space. IV started in ED with 18g angiocath using aseptic technique, with good blood return; one attempt. Saline lock placed and flushed with normal saline. --0126 Sheeba Leon R.N. IV fluids started. IV bag #1 of 1000 mL NS; rate = wide open. --0126 Sheeba Leon R.N. IV fluids discontinued. IV bag #1of 1000 mL NS. INTAKE: IV 1000 mL. --0222 Sheeba Leon R.N. IV fluids started. IV bag #2 of 1000 mL NS; rate = wide open. --0222 Sheeba Leon R.N. IV fluids discontinued. IV bag #2 of 1000 mL NS. INTAKE: IV 1000 mL. --0318 Sheeba Leon R.N. IV fluids started. IV bag #3 of 1000 mL NS; rate = wide open. --0318 Sheeba Leon R.N. IV fluids discontinued. IV bag #3 of 1000 mL NS. INTAKE: IV 1000 mL. --0355 Sheeba Leon R.N.. DISPOSITION / DISCHARGE IV site discontinued, catheter intact. --818 Kusum Duque R.N. Condition at departure: improved. Patient reports pain level on departure as 0/10. Fall risk assessment completed. No fall risk identified. Discharge instructions reviewed with the patient. Reviewed medication (Reviewed proper ntg administration and indication. Reviewed indication/use of ativan). Reviewed referral to a insert operator. The patient was accompanied by Balwinder britton. The patient left the Emergency Department ambulatory. --0615 Kusum Duque R.N.. Enrrique Hernandez R.N.MSebastian Shepherd. Enrrique Garcia R.N., R.N., R.N. Chris Vanstone R.N. Locked/Released at 11/06/2007 14:11 by Nila Diego R.N. documented in this encounter Plan of Treatment Not on file documented as of this encounter Visit Diagnoses Not on filedocumented in this encounter
--- OUTSIDE RECORDS SUMMARY | 2024-03-15 02:37 | XMS_ITS | Encounter Summary ---
Author Organization [facility] Address [address] [place] [address] Care Team Providers Care Massotherapist Name Role Phone Unavailable Primary Care Provider Unavailabl e Encounter Details Date Type Department Care Team (Late st Contact Info) Description 05/20/2002 5:38 EDT Hospital Encounter [facility] - Other [address] [place] [address] Kevin Chery MD [address] [place] [phone] Unknown, Provider, Social History Tobacco Use [...]
--- OUTSIDE RECORDS SUMMARY | 2024-03-15 02:37 | XMS_ITS | Encounter Summary ---
Author Organization [facility] Address [address] [place] [address] Care Team Providers Care Manager System Name Role Phone Unavailable Primary Care Provider Unavailabl e Encounter Details Date Type Department Care Team (Latest Contact Info) Description 05/18/2001 16:04 EDT - 05/31/2001 11:59 EST Hospital Encounter [facility] - [place] [facility] [address] [place] [address] Kevin Chery MD [address] [place] [phone] Discharge Disposition: Auto Discharge Social History [...]
--- OUTSIDE RECORDS SUMMARY | 2024-03-15 02:37 | XMS_ITS | Encounter Summary ---
Author Organization [facility] Address [address] [place] [address] Care Team Providers Care Neurology Physician Assistant Name Role Phone Unavailable Primary Care Provider Unavailabl e Encounter Details Date Type Department Care Team (Latest Contact Info) Description 05/17/2002 14:47 EDT Hospital Encounter [facility] - Other [address] [place] [address] Kevin Chery MD [address] [place] [phone] Unknown, Provider, Discharge Disposition: Auto Discharge [...]
--- OUTSIDE RECORDS SUMMARY | 2024-03-15 02:37 | XMS_ITS | Encounter Summary ---
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 Crane Truck Loader Name Role Phone Unavailable Primary Care Provider Unavailabl e Encounter Details Date Type Department Care Team (Late st Contact Info) Description 04/04/2001 15:25 EDT Hospital Encounter [facility] - Other [address] [place] [address] Minda Woodson PA Unknown, Provider, Social History Tobacco Use Types Packs/Day Years Used Date Smoking Tobacco: Never Assessed Sex and Gender Information Value Date Recorded Sex Assigned at Not on file Gender Identity Not on file Sexual Orientation Not on file documented as of this encounter Plan of Treatment Not on file documented as of this encounter Procedures Procedure Name Priority Date/Time Associated Diagnosis Comments URIC ACID Routine 04/04/2001 12:32 EDT HEPATIC FUNCTION PANEL (ALB,ALK PHOS,ALT,AST,DBIL,T OT CHRIS,TOT PROT) Routine 04/04/2001 12:32 EDT BASIC METABOLIC PANEL (BMP) Routine 04/04/2001 12:32 EDT documented in this encounter Results * URIC ACID (04/04/2001 12:32 EDT) Uric Acid 7.0 3.9 - 9.0 mg/dl [facility] 04/04/2001 12:3 2 EDT 04/04/2001 19:31 EDT Minda Kandice PA CHEMISTRY & BLOOD MD S ORDERABLES Performing Organization Address [facility] Co de Phone Number [facility] [address] [place] [address] * LIVER FUNCTION TESTS (04/04/2001 12:32 EDT) Pathologist [facility] Albumin 4.0 3.0 - 5.5 g/dl [facility] Total Protein 7.2 6.0 - 8.5 g/dl [facility] Total Alkaline Phosphatase 95 38 - 126 U/L [facility] ALT 53 15 - 75 U/L [facility] AST 28 8 - 50 U/L [facility] Unconjugated Bilirubin 0.7 0.1 - 1.1 mg/dl [facility] Conjugated Bilirubin 0.0 0.0 - 0.3 mg/dl [facility] Bilirubin, Total 0.8 0.2 - 1.3 mg/dl [facility] 04/04/2001 12:3 2 EDT 04/04/2001 19:31 EDT Minda GERONIMO CHEMISTRY & BLOOD MD S ORDERABLES Performing Organization Address [facility] Co de Phone Number [facility] [address] [place] [address] * BASIC METABOLIC PANEL (04/04/2001 12:32 EDT) Sodium 137 136 - 145 mEq/L [facility] Potassium 4.0 3.5 - 5.0 mEq/L [facility] Chloride 101 96 - 110 mEq/L [facility] CO2 25 24 - 30 mEq/L [facility] BUN 13 10 - 26 mg/dl [facility] Creatinine 1.0 0.7 - 1.5 mg/dl [facility] Calcium 9.5 8.5 - 10.5 mg/dl [facility] Calculated Calcium 9.9 8.5 - 10.5 mg/dl [facility] Glucose, Serum 96 70 - 110 mg/dl [facility] 04/04/2001 12:3 2 EDT 04/04/2001 19:31 EDT Minda GERONIMO CHEMISTRY & BLOOD GA S ORDERABLES Performing Organization Address City/State/[facility] Co de Phone Number [id number] [address] documented in this encounter Visit Diagnoses Not on filedocumented in this encounter
--- OUTSIDE RECORDS SUMMARY | 2024-03-15 02:37 | XMS_ITS | Encounter Summary ---
Author Organization [facility] Address [address] [place] [address] Care Team Providers Care Calender Supervisor Name Role Phone Unavailable Primary Care Provider Unavailabl e Encounter Details Date Type Department Care Team (Latest Contact Info) Description 01/05/2000 11:32 EDT - 01/05/2000 11:59 EDT Hospital Encounter [facility] Emergency Department - [facility] [address] [place], [place] [id number] Emergency, Default, MD Discharge Disposition: Home or [...] Procedure Name Priority Date/Time Associated Diagnosis Comments WRIST 3 OR MORE VIEWS Routine 01/05/2000 12:51 EDT documented in this encounter Results * WRIST 3 OR MORE VIEWS (01/05/2000 12:51 EDT) Anatomical Region Laterality Modality Other 01/05/2000 12:5 1 EDT Narrative 06/10/2009 16:29 EST S/P INJURY 3 DAYS AGO NOW EDEMA,TENDERNESS TO RIGHT SCAPHOID AREA R/O FRACTURE' RIGHT WRIST 01/05/00 12:45 FINDINGS: The bones and soft tissues are within normal limits. No fracture is identified. The attending radiologist has reviewed the images, and concurs with the findings described above. /huseyin Procedure Note Gasper Maldonado MD / Mateus Mcdonald MD - 06/10/2009 S/P INJURY 3 DAYS AGO NOW EDEMA,TENDERNESS TO RIGHT SCAPHOID AREA R/O FRACTURE' RIGHT WRIST 01/05/00 12:45 FINDINGS: The bones and soft tissues are within normal limits. No fracture is identified. The attending radiologist has reviewed the images, and concurs with the findings described above. /huseyin Jose Wallace MD IMG DIAGNOSTIC IMAG ING ORDERABLES documented in this encounter Visit Diagnoses Not on filedocumented in this encounter
--- OUTSIDE RECORDS SUMMARY | 2024-03-15 02:37 | XMS_ITS | Encounter Summary ---
Author Organization [facility] Address [address] [place] [address] Care Team Providers Care Distribution Lead Name Role Phone Unavailable Primary Care Provider Unavailabl e Encounter Details Date Type Department Care Team (Late st Contact Info) Description 10/30/2007 Office Visit [facility] [address] [place] [address] Libia Álvarez PA-C [address] [place] [phone] Social History Tobacco Use Types Packs/Day Years Used Date Smoking Tobacco: Never Assessed Sex and Gender Information Value Date Recorded Sex Assigned at Not on file Gender Identity Not on file Sexual Orientation Not on file documented as of this encounter Progress Notes * Libia Álvarez PA - 09/19/2009 1219 EST Department - Physician Summary Registration Date/Time: 10/30/2007 11:52 Time Seen: 12:36; initial documentation. Arrived- By private vehicle. Historian- patient. HISTORY OF PRESENT ILLNESS Chief Complaint: TREMORS. Wants to stop drinking. Referred for medical clearance. Wants to enter detox program. Substances abused: Alcohol. (about 2 days ago). He has had nausea and tremors. The patient has had vomiting (since 1 day). No fever, chills, diarrhea, abdominal pain or seizure. No agitation, delusions, hallucinations or suicidal thoughts. Not confused or paranoid. Has not been depressed. The symptoms are described as moderate. No injuries noted. The patient has had similar symptoms many times previously. The patient was seen recently in the emergency department. (last night for Chest pain while being transported to intermediate, neg w/u). REVIEW OF SYSTEMS The patient has not had weight loss. No sweats, headache, dizziness, weakness or chest pain. Poor dentition. PAST HISTORY See nurses notes. Hypertension. History of alcoholism. Medications: The patient's medications have been reviewed. Allergies: The patient's allergies have been reviewed. ADDITIONAL NOTES The nursing notes have been reviewed. PHYSICAL EXAM Appearance: Alert. Oriented X3. Vital Signs: Have been reviewed. Head: Head atraumatic. Eyes: Pupillary exam: Right pupil 4mm and round. Left pupil: 3mm, round and reactive to light directly and consensually and with accommodation. ENT: ENT inspection not normal. Airway intact. Dry mucous membranes present. Pharynx normal. toungesymetrical black pattern, unable to remove. R pupil about 1mm larger than L, nl fundi. Neck: Normal inspection. Neck supple. CVS: Tachycardia. Heart sounds normal. Pulses normal. Respiratory: No respiratory distress. Breath sounds normal. Skin: Normal skin colorand turgor. Skin warm and dry. No rash. Neuro: Alert. Oriented X 3. Cranial nerves normal (as tested). No motor deficit. No sensory deficit. PROGRESS AND PROCEDURES E.D. Course: Pt couldn't remember Metropralol dose. 50 - 100mg he thinks Pt was placed n intermediate last night, wanting to go to [facility] today, feeling a little shaky. No BP meds in 2 days Black tounge, no pepto Bismal, nl color stool, did have some green/ black emisis yesturday. 14:28. Pt feeling much better, denies tremors or feeling unstable, wanting to go to [facility] now. [facility] notified they are sending a cab. Pt appears well. No tremors noted.. ED Attending on duty and available for supervision: Micki August. Disposition: Discharged home in good condition (14:30). Discharged home in good condition. CLINICAL IMPRESSION Probable alcohol withdrawal. Black tongue, unequal pupils -likely pt's baseline. INSTRUCTIONS No alcohol. (Black tongue, encouraged better dental hygiene including brushing the tongue, f/u withprimary if not improving). Your Current Medications: Your current home medications have been reviewed by the Emergency Department physician psychological assistant. No changes in your current home medications are recommended at this time. Continue taking the following medications: Allopurinol. Metoprolol 25 mg Vitamins. . Prescription Medications: Valium 10 mg: take 1 orally every 4 hours as needed (per [facility] protocol, Rx to be filled by [facility] staff only). Follow-up: NOEMI GABRIEL MD, [facility], , [facility], [address], [place], [address]. Follow up. Call for an appointment. address HTN, ETOH and tongue. Understanding of thedischarge instructions verbalized by patient. (Electronically signed by GRAZYNA Sargent 10/30/2007 16:07) Addenda for LINDA SIMS VisitID: [id number] Date: 10/30/2007 10/30/2007 11:53 Referred to ED by [facility] for medical clearance to withdraw from [facility]. signed by Rachael Rodriguez - 10/30/2007 11:53) Department - Nursing Summary Registration Date/Time: 10/30/2007 11:52 TRIAGE Initial Assessment Triage time 12:Oct 30 2007. Acuity: LEVEL 4. BP: 222 / 121 sitting. HR: 114. RR: 16. Temp: 35.7 C (tympanic). Alert. No acute distress. --1203 Delilah Velasco R.N.. Medications Allopurinol. Metoprolol (none in 2 days). Vitamins. --1203 Delilah Velasco R.N.. Allergies No known drug allergies. --1203 Delilah Velasco R.N.. History Chief Complaint: ([facility] detox). Pain level now: 0/10. The patient has had vomiting. (shakes). PAST HX: Hypertension. SOCIAL HX: Alcohol use. Patient is a longstanding alcoholic. Historian: patient. Arrived (bus). (came from intermediate/detox. ). --1203 Delilah Rod, R.N.. NURSING PROGRESS NOTES Call light placed in reach. Side rails up x 1. Bed placed in lowest position. Brakes of bed on. Patient ready for evaluation. --1205 Anna Iverson,LINE ERECTOR, LINE ERECTOR (Assumed care at this time.). --1206 Sheeba Leon R.N. (Assumed care at this time.). --1231 Sheeba Carolyn, R.N. BP: 145 / 81. HR: 95. RR: 16. O2 saturation: 98 % room air. --1236 Sheeba Carolyn, R.N. BP: 186 / 96. --1327 Sheeba Leon, R.N. METOPROLOL 50 mg PO. . --1327 Sheeba Carolyn, R.N. LORAZEPAM 2mg diluted with IV fluid slow IVP over 2 minutes. IV patency established. Site checked: no pain, redness, or swelling. Flushed thoroughly pre- and post-medication administration. Sedative drug warning given to the patient. . --1327 Sheeba Carolyn, R.N. BP: 154 / 91. HR: 93. RR: 16. O2 saturation: 98 % room air. (Patient does not have tremors at this time). Patient reports current pain level as 0/10. --1450 Sheeba Carolyn, R.N.. IV / I&O Flowsheet IV access: left forearm. IV started in ED with 20g angiocath using aseptic technique, with good blood return; one attempt. Saline lock placed and flushed with normal saline. --1319 Sheeba Carolyn, R.N. IV fluids started. IV bag #1 of 1000 mL NS; rate = wide open. --1319 Sheeba Carolyn, R.N. IV fluids discontinued. IV bag #1 of 1000 mL NS. Site converted to saline lock. INTAKE: IV 1000 mL. --1439 Sheeba Carolyn, R.N. IV site discontinued, catheter intact and dressing applied. --1500 Sheeba Carolyn, R.N.. DISPOSITION / DISCHARGE IV site discontinued, catheter intact. Patient reports pain level on departure as 0/10. (I called [facility] they are sending taxi). No learning barriers present. Discharge instructions reviewed with the patient and ([facility]). Reviewed warnings (General). Reviewed medication side effects, precautions, dosing and course ([facility] staff only given to Security to give to [facility]). Reviewed instructions. Reviewed referrals ([facility] and PCP). Patient verbalized understanding and verbalized understanding ([facility]). Written instructions provided in Emirati. The patient was discharged ([facility]). The patient left the Emergency Department ambulatory and via taxi. --1504 Sheeba Leon R.N.. MONA Koroma R.N., MONA Leon R.N. Locked/Released at 10/30/2007 15:02 by Sheeba Leon R.N. documented in this encounter Plan of Treatment Not on file documented as of this encounter Visit Diagnoses Not on filedocumented in this encounter
--- OUTSIDE RECORDS SUMMARY | 2024-03-15 02:38 | XMS_ITS | Encounter Summary ---
[place] [address] Care Team Providers Care Utility Bill Collector Name Role Phone None Primary Care Provider Unavailabl e Encounter Details Date Type Department Care Team (Late st Contact Info) Description 12/13/[address] [place] [phone] Deepika Almendarez Social History Tobacco Use Types Packs/Day Years Used Date Smoking Tobacco: Never Assessed Sex and Gender Information Value Date Recorded Sex Assigned at Not on file Gender Identity Not on file Sexual Orientation Not on file documented as of this encounter Plan of Treatment Not on file documented as of this encounter Visit Diagnoses Not on filedocumented in this encounter Care Teams Utility Bill Collector Relationship Specialty Start Date End Date None None PCP - General 11/25/21 documented as of this encounter
--- OUTSIDE RECORDS SUMMARY | 2024-03-15 02:38 | XMS_ITS | Encounter Summary ---
Author Organization [facility] [place] [address] Care Team Providers Care Test Borer Name Role Phone Unavailable Primary Care Provider Unavailabl e Encounter Details Date Type Department Care Team (Late st Contact Info) Description 04/03/2021 Ancillary Procedure [place] [address] Timmy Navarrete MD [facility] [place] [address] [place] [address] Social History Tobacco Use Types Packs/Day Years Used Date Smoking Tobacco: Never Assessed Sex and Gender Information Value Date Recorded Sex Assigned at Not on file Gender Identity Not on file Sexual Orientation Not on file documented as of this encounter Plan of Treatment Not on file documented as of this encounter Procedures Procedure Name Priority Date/Time Associated Diagnosis Comments FILM LIBRARY STORAGE ONLY MR SPINE Routine 04/03/2021 12:00 AM EDT documented in this encounter Results * Film Library- Storage Only MR Spine (04/03/2021 12:00 AM EDT) Narrative [facility] - 10/01/2021 1:49 PM EST This exam is auto-finalizing. It's purpose is for storage only. Timmy Navarrete MD G FILM LIBRARY ORD ERABLES [place], [place] documented in this encounter Visit Diagnoses Not on filedocumented in this encounter
== END 2024-03-15 02:53 ==
LOC: DI 02:33
PROVIDERS: PCP Family Medicine; Visit Provider Family Medicine
DX: R10.9 Unspecified abdominal pain (principal)
CPT/HCPCS: 76700

== ENCOUNTER → 2024-05-18 08:35 | Outpatient (BNVA) | payer MEDICARE, SELFPAY | PROVIDERS: PCP Family Medicine; Referring Provider Family Medicine; Visit Provider Physician Assistant | DX: M17.0 Bilateral primary osteoarthritis of knee (principal) | CPT/HCPCS: 20610; J1010 ==

== ENCOUNTER 2024-06-07 02:05 | Outpatient (CLI) | payer MEDICARE, SELFPAY ==
--- NOTE | 2024-06-07 | DI.NM_ITS ---
APPROVED REPORT Exam: Exercise Treadmill Patient Location: Out-Patient Room/Bed: Stress Nurse: Edgar Truong RN and Wally Buenrostro RN Ordering Provider:KRISTOPHER BEASLEY, Contact Number: [phone] BMI: 27.12 Baseline Rhythm: Sinus Rhythm. Indications: Chest Pain, unspecified. 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 Cardiac Medications: Aspirin; Lorazepam; Losartan; Omeprazole; Sildenafil; Simvastatin; Tramadol; Tra zodone. Allergies: Bupropion; Clonidine; Effexor; Propranolol. Cardiac Risk Factors: Family Hx; Hypertension; Hyperlipidemia; Former Smoker. Previous Cardiac Procedures: None. Pretest Chest Pain Characteristics: None. Exercise History: Physically active. Physical Disabilities: Chronic Back Pain; Bilateral Knee Pain. Lung Sounds: Clear bilaterally throughout, anterior and posterior. Heart Sounds: S1 and S2 auscultated. Stress Test Details Test: Exercise stress testing was performed using a Karthikeyan protocol. Nuclear Acquisition: Rest Tc-99m/Stress Tc-99m 1 day Rest Isotope: Tc-99m Sestamibi. Dose: 10.8 Date: 06/07/2024 Injection Time: 0830 Stress Isotope: Tc-99m Sestamibi. Dose: 32.6 Date: 06/07/2024 Injection Time: 1000 HR Resting HR Supine: 65 bpm Max Heart Rate (APMHR): 154.378638 bpm Resting HR Standin bpm Target HR (85% APMHR): 130.638703 bpm Max HR Achieved: 140 bpm % of APMHR: 90.91 Recovery HR: 81 bpm HR response to stress: Normal HR response to stress. BP Resting BP Supine: 120/82 mmHg Resting BP Standin/82 mmHg Max BP: 190/88 mmHg Recovery BP: 128/72 mmHg BP response to stress: Normal blood pressure response to stress. ECG Resting ECG: Sinus Rhythm. Ectopy: None. Stress ECG: Sinus Tachycardia. ST Change: No significant ST segment changes noted. Arrhythmia: Rare PAC's. Recovery ECG: Sinus Rhythm. Recovery ST Change: No significant ST segment changes noted. Recovery Arrhythmia: None. Clinical Reason for Termination: Target HR Achieved, Fatigue. Stress Symptoms: General Fatigue. Exercise duration: 07 min30 sec Highest Stage Reached: Stage 3: 3.4 mph at 14% grade. Exercise capacity: 9.36 METs Angina Score: None Mcmahon Treadmill Score: 6.9 Rate Pressure Product: [id number] Stress ECG Conclusion 1. Resting electrocardiogram was normal 2. Patient exercised on the Karthikeyan protocol and completed a workload of 9 METS 3. Normal heart rate and blood pressure response to exercise. The patient achieved 91% of maximal pr edicted heart rate for age 4. There was no electrocardiographic evidence of myocardial ischemia 5. There were no significant dysrhythmias 6. See MPI report Mcmahon Treadmill Score is 6.9 which is Low risk. Stress Test Summary STAGE Time (mins) Speed (mph) Grade (%) HR BP SpO2 SYMPTOMS METS Supine 65 120/82 99 Standing 71 142/82 98 1 3 1.7 10 102 140/84 95 4.5 2 6 2.5 12 125 170/84 98 7 3 9 3.4 14 138 Pt. complaining of generalized fatigue. 10 1 min recovery 120 190/88 98 3 min recovery 89 176/60 98 6 min recovery 81 128/72 98 Pt. states all symptoms have resolved back to baseline. Pt. was conversing pleasantly with nursing staff upon leaving the Stress Lab. Pt. left ambulatory in no apparent distress. MPI Conclusion Myocardial perfusion is normal. There is no ischemia or evidence of prior infarction Calculated EF is 49% with normal wall motion. Visually EF appears 60% Radiologist Interpretation Radiologist Interpretation by: Kevin Gonzalez MD Interpretation Date/Time: 06/08/2024 16:05:04
== END 2024-06-07 02:25 ==
LOC: DI 02:05
PROVIDERS: PCP Family Medicine; Visit Provider Family Medicine
DX: R07.9 Chest pain, unspecified (principal)
CPT/HCPCS: 78452; 93016; 93018; 93017

== ENCOUNTER 2024-07-10 11:17 | Outpatient (REF) | payer MEDICARE, SELFPAY ==
[2024-07-10 15:14] LABS: ALT 30 U/L (16-63); AST 19 U/L (15-37); Albumin 4.2 g/dL (3.4-5.0); Alkaline Phosphatase 106 U/L (46-116); Anion Gap 8.8 mmol/L (3-11); BUN 18 mg/dL (7-18); Bilirubin, Total 0.51 mg/dL (0.2-1.0); CO2 28.2 mmol/L (21.0-32.0); CREATININE 1.1 mg/dL (0.70-1.30); Calcium 9.7 mg/dL (8.5-10.1); Chloride 104 mmol/L (98-107); Creatine Kinase 89 U/L (39-308); Estimated GFR 74.04 (mL/min/1.73m2); Glucose 100 mg/dL (74-106); Potassium 4.3 mmol/L (3.5-5.1); Sodium 141 mmol/L (136-145)
[2024-07-10 15:52] LABS: Calculated LDL 58 mg/dL (<100); Cholesterol 118 mg/dL (<200); HDL Cholesterol 46 mg/dL (40-60); Triglyceride 74 mg/dL (<150)
== END 2024-07-10 11:18 | disposition home or self-care (01) ==
LOC: NCHCN 11:17
PROVIDERS: PCP Family Medicine; Visit Provider Family Medicine
DX: E78.5 Hyperlipidemia, unspecified (principal); M54.50 Low back pain, unspecified; I10 Essential (primary) hypertension
CPT/HCPCS: 80053; 80061; 82550

== ENCOUNTER → 2024-09-14 10:23 | Outpatient (BNVA) | payer MEDICARE, SELFPAY | PROVIDERS: PCP Family Medicine; Referring Provider Family Medicine | DX: M17.11 Unilateral primary osteoarthritis, right knee (principal); M17.12 Unilateral primary osteoarthritis, left knee | CPT/HCPCS: 20610; J1010 ==

== ENCOUNTER → 2025-03-08 09:09 | Outpatient (BNVA) | payer MEDICARE, SELFPAY | PROVIDERS: PCP Family Medicine; Referring Provider Family Medicine; Visit Provider Physician Assistant | DX: M17.0 Bilateral primary osteoarthritis of knee (principal) | CPT/HCPCS: 20610; J1010 ==

== ENCOUNTER 2025-07-16 12:27 | Outpatient (REF) | payer MEDICARE, SELFPAY ==
[2025-07-16 15:39] LABS: HCT 44.6 % (40.0-50.0); HGB 15.0 g/dL (13.5-17.5); MCH 30.7 pg (27.0-33.0); MCHC 33.6 % (32.0-36.0); MCV 91 fL (80-95); MPV 11.2 fL (8.0-11.0); Platelet Count 194 10^3/uL (130-400); RBC 4.88 10^6/uL (4.36-5.78); RDW 11.9 % (11.8-14.1); RDW-SD 39.8 fL; WBC 6.36 10^3/uL (4.4-10.8)
[2025-07-16 16:22] LABS: ALT 24 U/L (10-49); AST 18 U/L (<34); Albumin 4.4 g/dL (3.2-5.0); Alkaline Phosphatase 101 U/L (46-116); Anion Gap 11.8 mmol/L (3-11); BUN 21 mg/dL (9-23); Bilirubin, Total 0.4 mg/dL (0.2-1.2); CO2 25.2 mmol/L (20.0-31.0); Calcium 9.8 mg/dL (8.3-10.6); Chloride 107 mmol/L (98-107); Cholesterol 151 mg/dL (<200); Glucose 85 mg/dL (74-106); HDL Cholesterol 41 mg/dL (>40); Potassium 4.1 mmol/L (3.5-5.1); Sodium 144 mmol/L (136-145); Total Protein 7.2 g/dL (5.7-8.2)
[2025-07-16 23:26] LABS: PSA, Screening 1.6 ng/mL (<=4.5)
== END 2025-07-16 12:28 | disposition home or self-care (01) ==
LOC: NCHCN 12:27
PROVIDERS: PCP Family Medicine; Visit Provider Family Medicine
DX: Z12.5 Encounter for screening for malignant neoplasm of prostate (principal); R10.9 Unspecified abdominal pain; E78.2 Mixed hyperlipidemia
CPT/HCPCS: 80053; 80061; 82784; 83516; 84153; 85027

== ENCOUNTER → 2025-07-24 11:38 | Outpatient (BNVA) | payer MEDICARE, SELFPAY | PROVIDERS: PCP Family Medicine; Referring Provider Family Medicine; Visit Provider Physician Assistant | DX: M17.0 Bilateral primary osteoarthritis of knee (principal) | CPT/HCPCS: 20610; J1010 ==